=== PATIENT | female | born 1945 | race Caucasian/White ===

== ENCOUNTER 2016-05-28 14:13 | Emergency (ER) | payer OTHER ==
[~2016-05-28] VITALS: Ht 162.6 cm; Wt 113.0 kg
[~2016-05-28 14:13] MED LIST: ALBUAER19 INH; ALLO100T PO; AMLO5TAB4 PO; ASPI81TA21 PO; BENA20TA13 PO; BIOTPOW17; BNC/40 PO; CALCIUM/MAG/ZINC; CINNAMON; CLOP1TAB5 PO; COLC0.6T54 PO; CRANPOW; DOCU1TAB6 PO; EFFSR75 PO; FISHOIL PO; FLAX SEED OIL; GABA-113 PO; GLIM2TAB2 PO; GLUC750C4 PO; LEVO175T PO; LPT/40 PO; LRT5 PO; LSX/40 PO; MECL1TAB42 PO; METF1000 PO; METO-217 PO; MULT-506 PO; MYCO15; NITR0.4D TD; OMEG10002 PO; ROPI1TAB PO; RSTOPS OP; SIMV20TA2 PO; TRAM-10 PO; VENL75TA4 PO
[2016-05-28 14:19] VITALS: TEMP 36.6; Ht 162.6 cm; Wt 113.0 kg
[2016-05-28 15:09] LABS: BASO % 0.3 %; BASO ABS # 0.02 K/uL (0-0.2); COMPLETE YES; EOS % 4.6 %; HEMATOCRIT 39.9 % (37-47); IG% 0.4 %; LYMPH % 30.4 %; LYMPH ABS # 2.16 K/uL (1.2-3.4); MEAN CELL VOLUME 94.5 fL (80-100); MEAN CORPUSCULAR HEMOGLOBIN 30.8 pg (25-34); MEAN CORPUSCULAR HGB CONC 32.6 g/dl (32-36); MEAN PLATELET VOLUME 11.4 fL (7.4-10.4); MONO % 5.9 %; NEUT % 58.4 %; PLATELET COUNT 201 K/uL (130-400); RED BLOOD COUNT 4.22 M/uL (4.2-5.4)
[2016-05-28 15:11] LABS: BLOOD UREA NITROGEN 20 mg/dl (7-18); BUN/CREATININE RATIO 21.6 (10-20); CALCIUM 9.8 mg/dl (8.5-10.1); CARBON DIOXIDE 29 mmol/L (21-32); CHLORIDE 105 mmol/L (98-107); CREATININE 0.91 mg/dl (0.60-1.20); GLUCOSE 197 mg/dl (70-99); POTASSIUM 4.4 mmol/L (3.5-5.1); SODIUM 140 mmol/L (136-145)
--- NOTE | 2016-05-28 15:41 | DIAGNOSTIC IMAGING REPORT ---
CT OF THE HEAD WITHOUT CONTRAST CLINICAL HISTORY: Fall. Dizziness and headache. COMPARISON STUDY: No previous studies for comparison. TECHNIQUE: Helical axial images of the head were obtained without IV contrast. Automated exposure control was utilized for the study. FINDINGS: No acute intracranial hemorrhage, midline shift or mass effect is present. Brain volume is normal for age. Ventricular system is normal. The basilar cisterns are patent. There are no extra-axial collections. Moderate white matter hypodensities likely reflect small vessel disease. There are no findings to suggest acute dural sinus thrombosis or acute territorial infarct. There is no calvarial fracture. Visualized portions of the sinuses and mastoid air cells are clear. IMPRESSION: 1. No acute intracranial findings. 2. No calvarial fracture. Electronically signed by: Tobin Gomez M.D. 05/28/2016 3:39 PM Dictated Date/Time: 05/28/2016 3:36 PM
--- NOTE | 2016-05-28 15:43 | DIAGNOSTIC IMAGING REPORT ---
CT SCAN OF THE CERVICAL SPINE CLINICAL HISTORY: Fall. Dizziness. Headache. COMPARISON STUDY: No priors. TECHNIQUE: CT scan of the cervical spine is performed from the skull base to the upper thoracic spine. Images are reviewed in the axial, sagittal, and coronal planes. IV contrast was not administered for this examination. CT DOSE: 1072.18 mGy.cm FINDINGS: Skeletal structures: The skeletal structures are well mineralized. There is no evidence of fracture or subluxation involving the cervical spine. Vertebral body height is maintained. There is minimal anterolisthesis at C4-C5. Alignment is otherwise preserved. There is straightening of the cervical lordosis with mild reversal centered at C4-C5. The odontoid process and lateral masses are intact. The atlantoaxial articulation is preserved noting productive degenerative change. The spinous processes appear intact. Anterior osteophytes are seen in the lower cervical region. There is near complete bony fusion of the facet joints bilaterally at C2-C3 and C3-C4. There is moderate multilevel cervical spondylosis. Uncovertebral and facet arthropathy contribute to neural foraminal narrowing at several levels. Intervertebral discs: There is moderate degenerative disc space narrowing at C6 -C7. Mild degenerative narrowing is seen at the remaining cervical levels. Central canal: A large posterior disc osteophyte complex at C6-C7 likely contributes to acquired compromise of the central canal. Soft tissues: The prevertebral and paraspinous soft tissues are within normal limits. Atherosclerotic calcification is noted in the carotid bulbs. Calvarium: The visualized calvarium at the skull base appears intact. Brain parenchyma: Partially visualized brain parenchyma the skull base is within normal limits. Sinuses and mastoids: The visualized paranasal sinuses are clear. The mastoid air cells are well pneumatized. Lung apices: Clear as visualized. IMPRESSION: 1. There is no evidence of fracture or subluxation involving the cervical spine. 2. Osteopenia and spondylotic change as above. Electronically signed by: Mil Walker M.D. 05/28/2016 3:41 PM Dictated Date/Time: 05/28/2016 3:38 PM
[2016-05-28 16:27] VITALS: BP 217/97; PULSE 55; O2SAT 97
--- NOTE | 2016-05-28 16:28 | DIAGNOSTIC IMAGING REPORT ---
LEFT KNEE 1 OR 2 VIEWS ROUTINE CLINICAL HISTORY: eval for fx trauma. Pain. COMPARISON: None. DISCUSSION: The bones and joint spaces appear intact. There is no evidence of fracture, dislocation or bony disease. Status post total joint replacement. Good contact between prosthetic and underlying bone. IMPRESSION: No acute process. Electronically signed by: Kendall Rodrigez M.D. 05/28/2016 4:27 PM Dictated Date/Time: 05/28/2016 4:27 PM
--- NOTE | 2016-05-28 16:29 | DIAGNOSTIC IMAGING REPORT ---
SACRUM COCCYX MIN 2 VIEWS CLINICAL HISTORY: Sacral pain status post trauma COMPARISON STUDY: No previous studies for comparison. FINDINGS: There are amorphous calcifications within the left pelvic basin, likely related to the uterus or ovary. Degenerative changes are present within the spine. Minor irregularity of the lower sacrum/coccyx is likely chronic/developmental. No definite acute fractures are visualized on conventional radiographic imaging IMPRESSION: No acute fractures identified. Electronically signed by: Ashok Villeda M.D. 05/28/2016 4:28 PM Dictated Date/Time: 05/28/2016 4:26 PM
[2016-05-28] MEDS ORDERED: OSELTAMIVIR PHOSPHATE SUSP 30 MG/5 ML UDP PO SCH (16:30)
--- NOTE | 2016-05-28 16:30 | DIAGNOSTIC IMAGING REPORT ---
PELVIS 1 OR 2 VIEW ROUTINE CLINICAL HISTORY: Pain status post trauma COMPARISON STUDY: No previous studies for comparison. FINDINGS: No acute fractures are visualized. Degenerative changes are present within the lower lumbar spine. There is no hip dislocation. There are nonspecific left sided pelvic calcifications, possibly related to the uterus or ovary IMPRESSION: No acute fractures identified. Electronically signed by: Ashok Villeda M.D. 05/28/2016 4:29 PM Dictated Date/Time: 05/28/2016 4:28 PM
--- NOTE | 2016-05-28 16:30 | DIAGNOSTIC IMAGING REPORT ---
LUMBAR SPINE 5 VIEWS HISTORY: Trauma. Pain. eval for fx COMPARISON: None. FINDINGS: There is no fracture. Mild levoscoliosis.. Grade 1 anterolisthesis of L4 and L5 secondary to degenerative changes of posterior elements. Moderate degenerative disc change L4-L5 and to lesser extent L5-S1. No evidence for compression deformity IMPRESSION: Degenerative change. No acute process. Electronically signed by: Kendall Rodrigez M.D. 05/28/2016 4:28 PM Dictated Date/Time: 05/28/2016 4:27 PM
--- NOTE | 2016-05-28 20:13 | EMERGENCY ROOM VISIT NOTE ---
History Report prepared by Prudence: Pratibha Tirado Under the Supervision of: Dr. Ivan Thornton M.D. First contact with patient: 14:22 Chief Complaint: OTHER COMPLAINT Stated Complaint: FALL/DIZZY/HEADACHE History of Present Illness The patient is a 70 year old female who presents to the Emergency Room with complaints of a worsening headache that began yesterday status post a fall. The patient notes that she was carrying garbage and misstepped, causing her to fall backwards. Her head initially hit some branches and clover, then hit the grass on the ground. Currently, she complains of lightheadedness, neck pain, back pain , tailbone pain, and right hip pain in addition to the headache. She has been able to walk since the fall. She was having difficulty sleeping due to her discomfort last night. Her current overall pain is an 8/10. She was not dizzy or lightheaded prior to the fall. The patient has a history of chronic neck pain due to spinal stenosis but her current neck pain is worse than usual. The patient notes that she had a fall last week in which she injured her left knee. She notes that she has some pain and swelling to the knee. She has a history of a bilateral knee replacement by Dr. Main. She is on Plavix and 81 mg aspirin. Denies chest pain, shortness of breath, nausea, unilateral numbness or weakness , or other complaints. Source of History: patient Onset: yesterday Position: head Symptom Intensity: 8/10 Timing: worsening Associated Symptoms: + back pain, + neck pain, No SOB, No chest pain, No nausea, No numbness, No weakness Note: Other symptoms: lightheadedness, tailbone pain, right hip pain, left knee pain Review of Systems See HPI for pertinent positives & negatives. A total of 10 systems reviewed and were otherwise negative. Past Medical & Surgical Medical Problems: (1) Spinal stenosis Family History No pertinent family history stated. Social History Smoking Status: Never Smoker Marital Status: Occupation Status: unemployed Current/Historical Medications Scheduled Albuterol Inhaler (Ventolin Inhaler), 2 PUFFS INH QID Allopurinol (Zyloprim), 300 MG PO DAILY Amlodipine Besylate (Norvasc), 5 MG PO DAILY Aspirin Enteric Coated (Ecotrin Or Generic), 81 MG PO DAILY Atorvastatin (Lipitor), 80 MG PO HS Benazepril Hcl (Lotensin), 20 MG PO DAILY Clopidogrel Bisulfate (Plavix), 75 MG PO DAILY Colchicine (Colchicine), 0.6 MG PO PRN Cyclosporine (Restasis Eye Drops), 1 DROP OP BID Docusate Sodium (Docusate Sodium), 100 MG PO BID Fish Oil ([place]-3), 1 CAP PO TID Furosemide (Lasix), 40 MG PO BID Gabapentin (Neurontin), 300 MG PO TID Glimepiride (Glimepiride), 2 MG PO QD@08 Glucosamine Sulfate (Glucosamine), DAILY Hydrocodone/Acetaminophen 5MG/500MG (Vicodin 5MG/500MG), 1 TABLET PO PRN Levothyroxine Sodium (Synthroid), 175 MCG PO DAILY Meclizine Hcl (Meclizine Hcl), 25 MG PO TID Metformin Hcl (Glucophage), 1,000 MG PO BID Metoprolol Succinate (Toprol Xl), 25 MG PO DAILY Multivitamin (Multivitamin), 1 TAB PO DAILY Olmesartan Medoxomil (Benicar), 40 MG PO DAILY [place]-3 Fatty Acids (Fish Oil), DAILY Ropinirole Hydrochloride (Requip), 1 MG PO HS Simvastatin (Zocor), 40 MG PO QPM Venlafaxine Hcl (Effexor), 75 MG PO BID Venlafaxine Hcl (Effexor Extended Rel), 75 MG PO DAILY [Biotin], BID [Calcium/Mag/Zinc], DAILY [Cinnamon], BID [Cranberry], DAILY [Flax Seed Oil], DAILY Scheduled PRN Nitroglycerin (Nitro-Dur 0.4 Mg/Hr), 1 PATCH TD for PRN Tramadol (Ultram), 1 TAB PO DAILY PRN for Pain Miscellaneous Medications Nystatin/Triamcinolone (Nystatin/Triamcinolone 534964-2.1 Unit/gm-%) Allergies Coded Allergies: Penicillins (Verified Allergy, Intermediate, HIVES, 05/28/16) HIVES Tetracyclines (Verified Allergy, Unknown, 05/28/16) Sulfa Drugs (Verified Adverse Reaction, Mild, N&V, 05/28/16) N&V Physical Exam Vital Signs Date Time Temp Pulse Resp B/P Pulse Ox O2 Delivery O2 Flow Rate FiO2 05/28/16 16:27 55 20 217/97 97 Room Air 05/28/16 14:19 36.6 58 18 226/98 98 Room Air Physical Exam Constitutional: Vital signs reviewed. Eyes: Pupils are equal round reactive to light. Conjunctiva are noninjected. ENT: Pharynx is clear without erythema or exudate. Mucous membranes are moist. Neck supple without meningeal signs. No midline tenderness to the C-spine. Respiratory: Clear to auscultation bilaterally. Breath sounds are equal bilaterally. Cardiovascular: Regular rate and rhythm. No rubs or gallops. GI: Soft, nondistended and nontender. Bowel sounds are present. Musculoskeletal: No midline tenderness to the thoracic or lumbosacral spine. No hip tenderness. Diffuse tenderness to the left knee without deformity. There is soft tissue swelling to the left knee. Bilateral edema in the lower extremities. Integumentary: No cyanosis. Neurological: The patient is awake and alert. Cranial nerves II-XII are intact. Motor is 5 out of 5 all extremities. Sensation is intact to light touch all extremities. Normal speech. No pronator drift. Psychiatric: Normal affect. Medical Decision & Procedures ER Provider Diagnostic Interpretation: Radiology results as stated below per my review and the radiologist's interpretation: CT OF THE HEAD WITHOUT CONTRAST CLINICAL HISTORY: Fall. Dizziness and headache. COMPARISON STUDY: No previous studies for comparison. TECHNIQUE: Helical axial images of the head were obtained without IV contrast. Automated exposure control was utilized for the study. FINDINGS: No acute intracranial hemorrhage, midline shift or mass effect is present. Brain volume is normal for age. Ventricular system is normal. The basilar cisterns are patent. There are no extra-axial collections. Moderate white matter hypodensities likely reflect small vessel disease. There are no findings to suggest acute dural sinus thrombosis or acute territorial infarct. There is no calvarial fracture. Visualized portions of the sinuses and mastoid air cells are clear. IMPRESSION: 1. No acute intracranial findings. 2. No calvarial fracture. Electronically signed by: Tobin Gomez M.D. 05/28/2016 3:39 PM Dictated Date/Time: 05/28/2016 3:36 PM ] CT SCAN OF THE CERVICAL SPINE CLINICAL HISTORY: Fall. Dizziness. Headache. COMPARISON STUDY: No priors. TECHNIQUE: CT scan of the cervical spine is performed from the skull base to the upper thoracic spine. Images are reviewed in the axial, sagittal, and coronal planes. IV contrast was not administered for this examination. CT DOSE: 1072.18 mGy.cm FINDINGS: Skeletal structures: The skeletal structures are well mineralized. There is no evidence of fracture or subluxation involving the cervical spine. Vertebral body height is maintained. There is minimal anterolisthesis at C4-C5. Alignment is otherwise preserved. There is straightening of the cervical lordosis with mild reversal centered at C4-C5. The odontoid process and lateral masses are intact. The atlantoaxial articulation is preserved noting productive degenerative change. The spinous processes appear intact. Anterior osteophytes are seen in the lower cervical region. There is near complete bony fusion of the facet joints bilaterally at C2-C3 and C3-C4. There is moderate multilevel cervical spondylosis. Uncovertebral and facet arthropathy contribute to neural foraminal narrowing at several levels. Intervertebral discs: There is moderate degenerative disc space narrowing at C6 -C7. Mild degenerative narrowing is seen at the remaining cervical levels. Central canal: A large posterior disc osteophyte complex at C6-C7 likely contributes to acquired compromise of the central canal. Soft tissues: The prevertebral and paraspinous soft tissues are within normal limits. Atherosclerotic calcification is noted in the carotid bulbs. Calvarium: The visualized calvarium at the skull base appears intact. Brain parenchyma: Partially visualized brain parenchyma the skull base is within normal limits. Sinuses and mastoids: The visualized paranasal sinuses are clear. The mastoid air cells are well pneumatized. Lung apices: Clear as visualized. IMPRESSION: 1. There is no evidence of fracture or subluxation involving the cervical spine. 2. Osteopenia and spondylotic change as above. Electronically signed by: Mil Walker M.D. 05/28/2016 3:41 PM Dictated Date/Time: 05/28/2016 3:38 PM SACRUM COCCYX MIN 2 VIEWS CLINICAL HISTORY: Sacral pain status post trauma COMPARISON STUDY: No previous studies for comparison. FINDINGS: There are amorphous calcifications within the left pelvic basin, likely related to the uterus or ovary. Degenerative changes are present within the spine. Minor irregularity of the lower sacrum/coccyx is likely chronic/developmental. No definite acute fractures are visualized on conventional radiographic imaging IMPRESSION: No acute fractures identified. Electronically signed by: Ashok Villeda M.D. 05/28/2016 4:28 PM Dictated Date/Time: 05/28/2016 4:26 PM LEFT KNEE 1 OR 2 VIEWS ROUTINE CLINICAL HISTORY: eval for fx trauma. Pain. COMPARISON: None. DISCUSSION: The bones and joint spaces appear intact. There is no evidence of fracture, dislocation or bony disease. Status post total joint replacement. Good contact between prosthetic and underlying bone. IMPRESSION: No acute process. Electronically signed by: Kendall Rodrigez M.D. 05/28/2016 4:27 PM Dictated Date/Time: 05/28/2016 4:27 PM LUMBAR SPINE 5 VIEWS HISTORY: Trauma. Pain. eval for fx COMPARISON: None. FINDINGS: There is no fracture. Mild levoscoliosis.. Grade 1 anterolisthesis of L4 and L5 secondary to degenerative changes of posterior elements. Moderate degenerative disc change L4-L5 and to lesser extent L5-S1. No evidence for compression deformity IMPRESSION: Degenerative change. No acute process. Electronically signed by: Kendall Rodrigez M.D. 05/28/2016 4:28 PM Dictated Date/Time: 05/28/2016 4:27 PM PELVIS 1 OR 2 VIEW ROUTINE CLINICAL HISTORY: Pain status post trauma COMPARISON STUDY: No previous studies for comparison. FINDINGS: No acute fractures are visualized. Degenerative changes are present within the lower lumbar spine. There is no hip dislocation. There are nonspecific left sided pelvic calcifications, possibly related to the uterus or ovary IMPRESSION: No acute fractures identified. Electronically signed by: Ashok Villeda M.D. 05/28/2016 4:29 PM Dictated Date/Time: 05/28/2016 4:28 PM Laboratory Results 05/28/16 14:35 Red Blood Count 4.22, Mean Corpuscular Volume 94.5, Mean Corpuscular Hemoglobin 30.8, Mean Corpuscular Hemoglobin Concent 32.6, Mean Platelet Volume 11.4, Neutrophils (%) (Auto) 58.4, Lymphocytes (%) (Auto) 30.4, Monocytes (%) (Auto) 5.9, Eosinophils (%) (Auto) 4.6, Basophils (%) (Auto) 0.3, Neutrophils # (Auto) 4.14, Lymphocytes # (Auto) 2.16, Monocytes # (Auto) 0.42, Eosinophils # (Auto) 0.33, Basophils # (Auto) 0.02 05/28/16 14:35 Test 05/28/16 14:35 White Blood Count 7.10 K/uL (4.8-10.8) Red Blood Count 4.22 M/uL (4.2-5.4) Hemoglobin 13.0 g/dL (12.0-16.0) Hematocrit 39.9 % (37-47) Mean Corpuscular Volume 94.5 fL (80-100) Mean Corpuscular Hemoglobin 30.8 pg (25-34) Mean Corpuscular Hemoglobin Concent 32.6 g/dl (32-36) Platelet Count 201 K/uL (130-400) Mean Platelet Volume 11.4 fL (7.4-10.4) Neutrophils (%) (Auto) 58.4 % Lymphocytes (%) (Auto) 30.4 % Monocytes (%) (Auto) 5.9 % Eosinophils (%) (Auto) 4.6 % Basophils (%) (Auto) 0.3 % Neutrophils # (Auto) 4.14 K/uL (1.4-6.5) Lymphocytes # (Auto) 2.16 K/uL (1.2-3.4) Monocytes # (Auto) 0.42 K/uL (0.11-0.59) Eosinophils # (Auto) 0.33 K/uL (0-0.5) Basophils # (Auto) 0.02 K/uL (0-0.2) RDW Standard Deviation 44.1 fL (36.4-46.3) RDW Coefficient of Variation 12.9 % (11.5-14.5) Immature Granulocyte % (Auto) 0.4 % Immature Granulocyte # (Auto) 0.03 K/uL (0.00-0.02) Prothrombin Time 11.0 SECONDS (9.0-12.0) Prothromb Time International Ratio 1.0 (0.9-1.1) Activated Partial Thromboplast Time 25.4 SECONDS (21.0-31.0) Partial Thromboplastin Ratio 1.0 Anion Gap 6.0 mmol/L (3-11) Est Creatinine Clear Calc Drug Dose 69.9 ml/min Estimated GFR () 73.6 Estimated GFR (Non- 63.5 BUN/Creatinine Ratio 21.6 (10-20) Calcium Level 9.8 mg/dl (8.5-10.1) Troponin I < 0.015 ng/ml (0-0.045) Laboratory results as reviewed by me. ECG Indication: other (lightheadedness) Rate (beats per minute): 55 Rhythm: sinus bradycardia Findings: no acute ischemic change, no ectopy ED Course 1439: The patient was evaluated in room A2. A complete history and physical exam was performed. 155: I reassessed the patient and updated her on test results. 1634: I reassessed the patient. I talked to her about results. She agreed with the plan and will be discharged home. Medical Decision This is a 70-year-old female presents with injuries after a mechanical fall yesterday. Differential diagnosis includes contusion, concussion, intracranial hemorrhage, skull fracture, tailbone fracture, strain. I did perform a limited focused review of portions of the patient's old chart on the electronic medical record. The patient has had no recent pertinent visits to this hospital. I did evaluate the patient as noted above. The patient misstepped and fell yesterday while holding garbage. She fell backwards onto her buttocks and then hit her head on the grass. She has since developed headache and dizziness as well as pain to her buttocks and tailbone. She is neurologically intact at this time. She states that she did not really want to be evaluated but she was with her and the nurses at the facility felt that she should be seen and sent her here. IV access was established. The patient was placed on a continuous diagnostic cardiac sonographer. I did order and personally review the patient's 12- lead EKG and x-rays as described above. I did order and review the patient's blood work as noted in the electronic medical record. I did order a CT of the head and cervical spine. I did review the images myself as well as the radiology report as described above. I did discuss the test results with the patient and her . I did recommend she follow up with her doctor and orthopedic physician. She was given head injury precautions and discharged in good condition. Impression Primary Impression: Acute head injury Additional Impressions: Fall Low back pain Chronic neck pain Left knee injury Scribe Attestation The scribe's documentation has been prepared under my direct and personally reviewed by me in its entirety. I confirm that the note above accurately reflects all work, treatment, procedures, and medical decision making performed by me. Departure Information Dispostion Home / Self-Care Referrals Mable Hylton (PCP) Patient Instructions ED Head Injury Closed, My [facility] Additional Instructions You have been examined and treated today on an emergency basis only. This is not a substitute for, or an effort to provide, complete comprehensive medical care. It is impossible to recognize and treat all injuries or illnesses in a single emergency department visit. It is therefore important that you follow up closely with your physician and orthopedic surgeon regarding your knee. Call as soon as possible for an appointment. Return for worsening symptoms or if you develop fever, vomiting, abdominal pain, loss of control of your bowel or bladder, numbness or weakness to your legs, numbness to your private area, difficulty urinating, or any other concerning symptoms. Problem Qualifiers
[2016-06-15] MEDS ORDERED: BENA1TAB19 PO (10:05)
[2016-06-15] MEDS ORDERED: ALBUAER INH (10:05)
[2016-08-28] MEDS ORDERED: novolog SQ (14:07)
[2016-08-28] MEDS ORDERED: Lantus SQ (14:07)
[2016-08-28] MEDS ORDERED: ASCA500 PO (14:15)
[2016-08-28] MEDS ORDERED: vitamin e PO (14:15)
[2016-08-28] MEDS ORDERED: MAGN400T6 PO (14:15)
[2016-08-28] MEDS ORDERED: ZINC1CAP PO (14:15)
[2016-10-09] MEDS ORDERED: ALLO300T2 PO (15:28)
[2016-10-09] MEDS ORDERED: INSDGI SC (15:28)
[2016-10-09] MEDS ORDERED: ATOR-26 PO (15:28)
[2016-10-09] MEDS ORDERED: NVLGI/PEN SQ (15:28)
[2016-10-09] MEDS ORDERED: CARV25TA2 PO (15:54)
== END 2016-05-28 16:52 | disposition home or self-care (01) ==
LOC: EDBD 14:13 → C.EDA 14:14
DX: S09.90XA Unspecified injury of head, initial encounter (principal); M54.5 Low back pain; M54.2 Cervicalgia; S89.92XA Unspecified injury of left lower leg, initial encounter; W18.30XA Fall on same level, unspecified, initial encounter; Y93.E9 Activity, other interior property and clothing maintenance; M25.551 Pain in right hip; M53.3 Sacrococcygeal disorders, not elsewhere classified; M48.02 Spinal stenosis, cervical region; M47.812 Spondylosis without myelopathy or radiculopathy, cervical region; M85.88 Other specified disorders of bone density and structure, other site; Z96.653 Presence of artificial knee joint, bilateral; Z79.01 Long term (current) use of anticoagulants; Z79.82 Long term (current) use of aspirin

== ENCOUNTER 2016-06-13 09:22 | Observation (INO) | payer OTHER ==
[~2016-06-13] VITALS: Ht 162.6 cm; Wt 105.5 kg
[2016-06-13] MEDS ORDERED: ONDANSETRON INJ 2 MG/ML 2 ML VIAL IV STA (09:35)
[2016-06-13 09:48] LABS: BASO % 0.3 %; BASO ABS # 0.02 K/uL (0-0.2); COMPLETE YES; EOS % 6.8 %; HEMATOCRIT 41.5 % (37-47); IG% 0.5 %; LYMPH % 26.1 %; LYMPH ABS # 1.92 K/uL (1.2-3.4); MEAN CELL VOLUME 91.8 fL (80-100); MEAN CORPUSCULAR HEMOGLOBIN 30.8 pg (25-34); MEAN CORPUSCULAR HGB CONC 33.5 g/dl (32-36); MONO % 6.8 %; NEUT % 59.5 %; PLATELET COUNT 207 K/uL (130-400); RED BLOOD COUNT 4.52 M/uL (4.2-5.4); WHITE BLOOD COUNT 7.36 K/uL (4.8-10.8)
[2016-06-13 10:00] LABS: INR 1.1 (0.9-1.1); PROTHROMBIN TIME (PATIENT) 11.3 SECONDS (9.0-12.0)
--- NOTE | 2016-06-13 10:03 | EMERGENCY ROOM VISIT NOTE ---
History Report prepared by Prudence: Kapil Weber Under the Supervision of: Dr. Derek Arguello D.O. First contact with patient: 09:28 Stated Complaint: HEADACHE, HYPERTENSION History of Present Illness The patient is a 70 year old female who presents to the Emergency Room with complaints of a constant headache for the past couple of weeks. The patient states that she came into the hospital for her , and someone told her that she did not look well and should come to the ED. The patient states that the headache is located at the front of her head. The patient denies any nausea , vomiting, chest pain, shortness of breath, and abdominal pain. She is complaining of some neck stiffness and neck pain. The patient additionally states that she has been a little confused recently. She states that she has not gone to her doctor about this recently. She states that she has a medical history of hypertension, diabetes, lymphedema, and salivary gland cancer in 1974 , and she states that she has a surgical history of knee surgery, exploratory surgery, carpal tunnel surgery, and an appendectomy. She additionally states that she falls a lot. The patient states that she did not take her medications this morning. She denies any alcohol or tobacco usage. Source of History: patient Onset: a couple weeks ago Position: head Quality: ache Timing: constant Associated Symptoms: + neck pain, No SOB, No abdominal pain, No nausea, No vomiting Review of Systems See HPI for pertinent positives & negatives. A total of 10 systems reviewed and were otherwise negative. Past Medical & Surgical Medical Problems: (1) Hypertensive urgency (2) Spinal stenosis Family History Heart disease Hypertension Social History Smoking Status: Never Smoker Marital Status: Occupation Status: unemployed Current/Historical Medications Scheduled Albuterol Sulfate (Proventil Hfa), Unknown Dose INH DIRECTED Allopurinol (Zyloprim), 300 MG PO DAILY Aspirin Enteric Coated (Ecotrin Or Generic), 81 MG PO DAILY Atorvastatin (Lipitor), 80 MG PO HS Benazepril Hcl (Lotensin), 20 MG PO DAILY Biotin (Biotin), Unknown Dose PO BID Colchicine (Colchicine), 0.6 MG PO PRN Cyclosporine (Ophth) (Restasis), 1 DROPS OP BID Docusate Sodium (Docusate Sodium), 100 MG PO BID Fluticasone Propionate (Nasal) (Flonase Allergy Relief), 50 MCG JOHN BID Furosemide (Lasix), 80 MG PO DAILY Gabapentin (Neurontin), 300 MG PO BID Glimepiride (Amaryl), 1 TAB PO BID Glucosamine Sulfate (Glucosamine), DAILY Hydrocortisone Acetate (Rectal (Anusol-Hc), 1 SUPP AL BID Levothyroxine Sodium (Synthroid), 175 MCG PO DAILY Meloxicam (Mobic), 15 MG PO DAILY Metformin Hcl (Glucophage), 1,000 MG PO BID Metoprolol Tartrate (Lopressor) (Lopressor), 1 TAB PO BID Multivitamin (Multivitamin), 1 TAB PO DAILY [place]-3 Fatty Acids (Fish Oil), DAILY Pantoprazole (Protonix), 40 MG PO DAILY Ropinirole Hydrochloride (Requip), 1 MG PO HS Senna (Senokot), 1 TAB PO DIRECTED Venlafaxine Hcl (Effexor Extended Rel), 75 MG PO DAILY [Calcium/Mag/Zinc], DAILY [Cinnamon], BID [Flax Seed Oil], DAILY Scheduled PRN Diphenhydramine Hcl (Benadryl Allergy), 1 CAP PO Q4H PRN for Itching Miscellaneous Medications Nystatin/Triamcinolone (Nystatin/Triamcinolone 763207-2.1 Unit/gm-%) Allergies Coded Allergies: Penicillins (Verified Allergy, Intermediate, HIVES, 06/13/16) HIVES Tetracyclines (Verified Allergy, Unknown, 06/13/16) Sulfa Drugs (Verified Adverse Reaction, Mild, N&V, 06/13/16) N&V Physical Exam Vital Signs Date Time Temp Pulse Resp B/P Pulse Ox O2 Delivery O2 Flow Rate FiO2 06/13/16 16:41 61 18 210/114 96 Room Air 06/13/16 14:45 58 16 227/89 06/13/16 14:02 57 16 230/85 06/13/16 13:40 52 16 198/88 93 Room Air 06/13/16 13:33 54 06/13/16 12:02 55 18 252/117 97 Room Air 06/13/16 11:04 61 16 245/128 96 Nasal Cannula 2.0 06/13/16 09:48 64 06/13/16 09:32 36.4 67 16 252/101 94 Room Air Physical Exam GENERAL: Patient is awake, alert, and slow to answer questions but does not appear to be in pain. EYES: The conjunctivae are clear. The pupils are round and reactive. EARS, NOSE, MOUTH AND THROAT: The nose is without any evidence of any deformity. Mucous membranes are moist tongue is midline NECK: The neck is nontender and supple. RESPIRATORY: Normal respiratory effort is noted there is no evidence of wheezing rhonchi or rales CARDIOVASCULAR: Regular rate and rhythm noted there no murmurs rubs or gallops normal S1 normal S2 GASTROINTESTINAL: The abdomen is soft. Bowel sounds are present in all quadrants. Abdomen is nontender MUSCULOSKELETAL/EXTREMITIES: There is no evidence of gross deformity full range of motion is noted in the hips and shoulders SKIN: Pedal edema noted bilaterally. No erythema or signs of cellulitis noted. NEUROLOGIC: Slow to answer questions. Follows commands appropriately. No drift in either lower extremity. Speech was normal. Holds legs off of the bed for greater than 5 seconds. Medical Decision & Procedures ER Provider Diagnostic Interpretation: Radiology results as stated below per my review and radiologist interpretation: CT HEAD WITHOUT CONTRAST (CT) CLINICAL HISTORY: Severe headache COMPARISON STUDY: 05/28/2016 TECHNIQUE: Axial CT of the brain is performed from the vertex to the skull base. IV contrast was not administered for this examination. CT DOSE: 614.27 mGy.cm FINDINGS: No intra or extra-axial mass lesions are visualized. There is no CT evidence of acute cortical infarction. There is no evidence of midline shift. There is no acute hemorrhage. No calvarial fractures are visualized. There are moderate white matter hypodensities likely on a small vessel basis. There is no evidence of pathologic ventricular dilatation. There is no evidence of acute sinusitis. There is a stable 7 mm dural based calcification within the right anterior middle cranial fossa IMPRESSION: No acute intracranial findings Electronically signed by: Ashok Villeda M.D. 06/13/2016 10:55 AM Dictated Date/Time: 06/13/2016 10:53 AM CHEST ONE VIEW PORTABLE CLINICAL HISTORY: Headache. Confusion. COMPARISON STUDY: No previous studies for comparison. FINDINGS: There is no pneumothorax or pleural effusion. Moderate enlargement of the cardiac silhouette is noted. There is pulmonary vascular congestion without overt pulmonary edema. No consolidation is identified. IMPRESSION: Moderate enlargement of the cardiac silhouette. Pulmonary vascular congestion without overt pulmonary edema. Electronically signed by: Tobin Gomez M.D. 06/13/2016 10:42 AM Dictated Date/Time: 06/13/2016 10:38 AM Laboratory Results 06/13/16 09:30 Red Blood Count 4.52, Mean Corpuscular Volume 91.8, Mean Corpuscular Hemoglobin 30.8, Mean Corpuscular Hemoglobin Concent 33.5, Mean Platelet Volume 11.0, Neutrophils (%) (Auto) 59.5, Lymphocytes (%) (Auto) 26.1, Monocytes (%) (Auto) 6.8, Eosinophils (%) (Auto) 6.8, Basophils (%) (Auto) 0.3, Neutrophils # (Auto) 4.38, Lymphocytes # (Auto) 1.92, Monocytes # (Auto) 0.50, Eosinophils # (Auto) 0.50, Basophils # (Auto) 0.02 06/13/16 09:30 Test 06/13/16 09:30 06/13/16 09:50 White Blood Count 7.36 K/uL (4.8-10.8) Red Blood Count 4.52 M/uL (4.2-5.4) Hemoglobin 13.9 g/dL (12.0-16.0) Hematocrit 41.5 % (37-47) Mean Corpuscular Volume 91.8 fL (80-100) Mean Corpuscular Hemoglobin 30.8 pg (25-34) Mean Corpuscular Hemoglobin Concent 33.5 g/dl (32-36) Platelet Count 207 K/uL (130-400) Mean Platelet Volume 11.0 fL (7.4-10.4) Neutrophils (%) (Auto) 59.5 % Lymphocytes (%) (Auto) 26.1 % Monocytes (%) (Auto) 6.8 % Eosinophils (%) (Auto) 6.8 % Basophils (%) (Auto) 0.3 % Neutrophils # (Auto) 4.38 K/uL (1.4-6.5) Lymphocytes # (Auto) 1.92 K/uL (1.2-3.4) Monocytes # (Auto) 0.50 K/uL (0.11-0.59) Eosinophils # (Auto) 0.50 K/uL (0-0.5) Basophils # (Auto) 0.02 K/uL (0-0.2) RDW Standard Deviation 42.6 fL (36.4-46.3) RDW Coefficient of Variation 12.8 % (11.5-14.5) Immature Granulocyte % (Auto) 0.5 % Immature Granulocyte # (Auto) 0.04 K/uL (0.00-0.02) Prothrombin Time 11.3 SECONDS (9.0-12.0) Prothromb Time International Ratio 1.1 (0.9-1.1) Activated Partial Thromboplast Time 26.5 SECONDS (21.0-31.0) Partial Thromboplastin Ratio 1.0 Anion Gap 8.0 mmol/L (3-11) Est Creatinine Clear Calc Drug Dose 63.9 ml/min Estimated GFR () 67.3 Estimated GFR (Non- 58.0 BUN/Creatinine Ratio 17.0 (10-20) Calcium Level 10.6 mg/dl (8.5-10.1) Total Bilirubin 0.4 mg/dl (0.2-1) Direct Bilirubin 0.1 mg/dl (0-0.2) Aspartate Amino Transf (AST/SGOT) 16 U/L (15-37) Alanine Aminotransferase (ALT/SGPT) 27 U/L (12-78) Alkaline Phosphatase 97 U/L (45-117) Total Creatine Kinase 33 U/L (26-192) Creatine Kinase MB 0.5 ng/ml (0.5-3.6) Creatine Kinase MB Ratio 1.5 (0-3.0) Troponin I < 0.015 ng/ml (0-0.045) Total Protein 7.1 gm/dl (6.4-8.2) Albumin 3.6 gm/dl (3.4-5.0) Lipase 156 U/L (73-393) Urine Color YELLOW Urine Appearance CLEAR (CLEAR) Urine pH 7.0 (4.5-7.5) Urine Specific [place] 1.014 (1.000-1.030) Urine Protein 1+ (NEG) Urine Glucose (UA) 2+ (NEG) Urine Ketones NEG (NEG) Urine Occult Blood NEG (NEG) Urine Nitrite NEG (NEG) Urine Bilirubin NEG (NEG) Urine Urobilinogen NEG (NEG) Urine Leukocyte Esterase NEG (NEG) Urine WBC (Auto) 1-5 /hpf (0-5) Urine RBC (Auto) 0-4 /hpf (0-4) Urine Hyaline Casts (Auto) 1-5 /lpf (0-5) Urine Epithelial Cells (Auto) 10-20 /lpf (0-5) Urine Bacteria (Auto) NEG (NEG) Laboratory results per my review. Medications Administered Medications (Trade) Dose Ordered Sig/Di Route Start Time Stop Time Status Last Admin Dose Admin Clonidine HCl (Catapres Tab) 0.2 mg NOW ONCE PO 06/13/16 12:15 06/13/16 12:16 DC 06/13/16 12:17 0.2 MG Amlodipine Besylate (Norvasc Tab) 5 mg NOW STAT PO 06/13/16 16:29 06/13/16 16:30 DC 06/13/16 16:40 5 MG Furosemide (Lasix Tab) 80 mg NOW STAT PO 06/13/16 16:30 06/13/16 16:31 DC 06/13/16 16:40 80 MG ECG Indication: other (Headache) Rate (beats per minute): 59 Rhythm: sinus bradycardia Findings: no ectopy, other (No acute ST abnormality. LVH noted by voltage criteria) Comparison ECG Date: 05/28/16 Change: LVH is new ED Course 0928: The patient was evaluated in room B10. A complete history and physical examination were performed. 1207: I reevaluated the patient, and she was resting 1215: Catapres Tab 0.2mg PO 1300: I reevaluated the patient, and she was resting. 1403: I discussed the patient's case with Dr. Ridley. He is going to evaluate the patient for further treatment Medical Decision Differential diagnosis: Etiologies such as migraine headache, meningitis, sinusitis, CO exposure, ICH, SAH, infection, tumor, headache, sinus thrombosis, arterial dissection, as well as others were entertained. Nursing notes reviewed. The patient is a 70-year-old female who presented to the emergency department with multiple complains. She was found have a very elevated blood pressure and her thought processes seemed to be quite slow. She appears to be noncompliant with her blood pressure medication. She was treated with her usual outpatient blood pressure medication as well as clonidine in the emergency department. The patient was evaluated multiple times in the emergency department. Her symptoms started to slowly improve as well as her blood pressure improved. I was very concerned with her overall condition. It sounds though she needs some help at home and I'm not sure if she is completely compliant with medications at baseline. This reason I discussed her case with the on-call [facility] hospitalist. I do feel she may have some degree of hypertensive encephalopathy and may require more intensive and slow her blood control at this time. I discussed the patient's laboratory and radiographic studies with her. Consults Time Called: 1400 Consulting Physician: Dr. Ridley Returned Call: 1403 I discussed the patient's case with Dr. Ridley. He is going to evaluate the patient for further treatment Impression Primary Impression: Hypertensive encephalopathy Additional Impression: Noncompliance with medication regimen Scribe Attestation The scribe's documentation has been prepared under my direction and personally reviewed by me in its entirety. I confirm that the note above accurately reflects all work, treatment, procedures, and medical decision making performed by me. Departure Information Referrals Mable Hylton (PCP) Problem Qualifiers
[2016-06-13 10:08] LABS: ALT/SGPT 27 U/L (12-78); BLOOD UREA NITROGEN 17 mg/dl (7-18); CALCIUM 10.6 mg/dl (8.5-10.1); CARBON DIOXIDE 29 mmol/L (21-32); CHLORIDE 104 mmol/L (98-107); CREATININE 0.98 mg/dl (0.60-1.20); GLUCOSE 221 mg/dl (70-99); POTASSIUM 3.9 mmol/L (3.5-5.1); SODIUM 141 mmol/L (136-145)
[2016-06-13] MEDS ORDERED: METO25TA56 PO (10:08)
[2016-06-13 10:13] LABS: ALKALINE PHOSPHATASE 97 U/L (45-117); AST/SGOT 16 U/L (15-37); CKMB/CK RATIO 1.5 (0-3.0)
[2016-06-13] MEDS ORDERED: HYDR25SU20 PR (10:18)
[2016-06-13] MEDS ORDERED: PANT40TA PO (10:18)
[2016-06-13] MEDS ORDERED: SENN-61 PO (10:18)
[2016-06-13] MEDS ORDERED: MELO7.5T5 PO (10:18)
[2016-06-13] MEDS ORDERED: DIPH25CA65 PO (10:18)
[2016-06-13] MEDS ORDERED: GLIM4TAB PO (10:18)
[2016-06-13] MEDS ORDERED: ALBUAER INH (10:21)
[2016-06-13] MEDS ORDERED: CYCL0.052 OP (10:21)
[2016-06-13] MEDS ORDERED: FLUT0.15 NAE (10:24)
[2016-06-13] MEDS ORDERED: BIOT1CAP8 PO (10:24)
[2016-06-13 10:38] LABS: URINE APPEARANCE CLEAR (CLEAR); URINE BILIRUBIN NEG (NEG); URINE COLOR YELLOW; URINE NITRITE NEG (NEG); URINE SPECIFIC GRAVITY 1.014 (1.000-1.030); UROBILINOGEN NEG (NEG)
--- NOTE | 2016-06-13 10:44 | DIAGNOSTIC IMAGING REPORT ---
CHEST ONE VIEW PORTABLE CLINICAL HISTORY: Headache. Confusion. COMPARISON STUDY: No previous studies for comparison. FINDINGS: There is no pneumothorax or pleural effusion. Moderate enlargement of the cardiac silhouette is noted. There is pulmonary vascular congestion without overt pulmonary edema. No consolidation is identified. IMPRESSION: Moderate enlargement of the cardiac silhouette. Pulmonary vascular congestion without overt pulmonary edema. Electronically signed by: Tobin Gomez M.D. 06/13/2016 10:42 AM Dictated Date/Time: 06/13/2016 10:38 AM
[2016-06-13 10:46] LABS: MANUAL MICROSCOPIC REQUIRED? NO; REVIEW REQ? NO
--- NOTE | 2016-06-13 10:56 | DIAGNOSTIC IMAGING REPORT ---
CT HEAD WITHOUT CONTRAST (CT) CLINICAL HISTORY: Severe headache COMPARISON STUDY: 05/28/2016 TECHNIQUE: Axial CT of the brain is performed from the vertex to the skull base. IV contrast was not administered for this examination. CT DOSE: 614.27 mGy.cm FINDINGS: No intra or extra-axial mass lesions are visualized. There is no CT evidence of acute cortical infarction. There is no evidence of midline shift. There is no acute hemorrhage. No calvarial fractures are visualized. There are moderate white matter hypodensities likely on a small vessel basis. There is no evidence of pathologic ventricular dilatation. There is no evidence of acute sinusitis. There is a stable 7 mm dural based calcification within the right anterior middle cranial fossa IMPRESSION: No acute intracranial findings Electronically signed by: Ashok Villeda M.D. 06/13/2016 10:55 AM Dictated Date/Time: 06/13/2016 10:53 AM
[2016-06-13] MEDS ORDERED: METOPROLOL TARTRATE 50 MG TAB PO STA (11:09)
[2016-06-13] MEDS ORDERED: CLONIDINE HCL 0.1 MG TAB PO ONE (12:15)
[2016-06-13] MEDS ORDERED: ACETAMINOPHEN 325 MG TAB PO PRN (15:15)
--- NOTE | 2016-06-13 15:44 | History and Physical ---
History & Physical Date & Time of Service: Jun 13, 2016 at 15:45 . Chief Complaint: weakness, falls, headache . Primary Care Physician: Mable Hylton . History of Present Illness Source: patient, clinic records, hospital records 70 YO female followed by KASANDRA Grady in the [facility]. History of ischemic heart disease, hypertension, DM type 2, and other problems noted below. She was accompanying her today for his physical therapy sessions here. Noted to appear ill; possibly confused. Referred to ED for evaluation. BP in ED was 252/101. Patient apparently did not take her morning antihypertensive meds today. She has been experiencing generalized weakness, intermittent vertigo, frequent falls. Seen in ED on 05/28/16. BP at that time was 226/98. Last fall was about a week ago; she struck her head and neck. No associated LOC. No associated palpitations. She has had a headache which she attributes to chronic neck pain. Chronic chest pressure with exertion, relieved by rest, unchanged. Chronic dyspnea on exertion, unchanged. Chronic edema, somewhat worse. Has not been taking her furosemide due to urinary incontinence. . Past Medical/Surgical History Chronic and Resolved Medical Problems: (1) Aortic stenosis Status: Chronic (2) Cerebrovascular disease Permanent Comment: history TIA Status: Chronic (3) Chronic neck pain Status: Chronic (4) Coronary artery disease Status: Chronic (5) Diabetes mellitus, type 2 Status: Chronic (6) Diabetic neuropathy Status: Chronic (7) Dyslipidemia Status: Chronic (8) Gout Status: Chronic (9) History of urinary calculi Status: Chronic (10) Hypertension Status: Chronic (11) Hypothyroidism Status: Chronic (12) Osteoarthritis Status: Chronic (13) Restless leg syndrome Status: Chronic (14) Spinal stenosis Status: Chronic (15) Urinary incontinence Status: Chronic Surgical Problems: (1) Status post appendectomy Status: Chronic (2) Status post hernia repair Status: Chronic (3) Status post total knee replacement, bilateral Status: Chronic . Family History Mother- [place], CHF, stroke Father- CAD, stroke, Alzheimer's Daughter- RA . Social History Smoking Status: Never Smoker Alcohol Use: none Marital Status: Occupational Status: unemployed Immunizations History of Influenza Vaccine: Yes History of Tetanus Vaccine?: Unknown History of Pneumococcal: Yes History of Hepatitis B Vaccine: Yes Multi-Drug Resistant Organisms History of MDRO: No Allergies Coded Allergies: Penicillins (Verified Allergy, Intermediate, HIVES, 06/13/16) HIVES Tetracyclines (Verified Allergy, Unknown, 06/13/16) Sulfa Drugs (Verified Adverse Reaction, Mild, N&V, 06/13/16) N&V Home Medications Scheduled Albuterol Sulfate (Proventil Hfa), Unknown Dose INH DIRECTED Allopurinol (Zyloprim), 300 MG PO DAILY Aspirin Enteric Coated (Ecotrin Or Generic), 81 MG PO DAILY Atorvastatin (Lipitor), 80 MG PO HS Benazepril Hcl (Lotensin), 20 MG PO DAILY Biotin (Biotin), Unknown Dose PO BID Colchicine (Colchicine), 0.6 MG PO PRN Cyclosporine (Ophth) (Restasis), 1 DROPS OP BID Docusate Sodium (Docusate Sodium), 100 MG PO BID Fluticasone Propionate (Nasal) (Flonase Allergy Relief), 50 MCG JOHN BID Furosemide (Lasix), 80 MG PO DAILY Gabapentin (Neurontin), 300 MG PO BID Glimepiride (Amaryl), 1 TAB PO BID Glucosamine Sulfate (Glucosamine), DAILY Hydrocortisone Acetate (Rectal (Anusol-Hc), 1 SUPP DE BID Levothyroxine Sodium (Synthroid), 175 MCG PO DAILY Meloxicam (Mobic), 15 MG PO DAILY Metformin Hcl (Glucophage), 1,000 MG PO BID Metoprolol Tartrate (Lopressor) (Lopressor), 1 TAB PO BID Multivitamin (Multivitamin), 1 TAB PO DAILY [place]-3 Fatty Acids (Fish Oil), DAILY Pantoprazole (Protonix), 40 MG PO DAILY Ropinirole Hydrochloride (Requip), 1 MG PO HS Senna (Senokot), 1 TAB PO DIRECTED Venlafaxine Hcl (Effexor Extended Rel), 75 MG PO DAILY [Calcium/Mag/Zinc], DAILY [Cinnamon], BID [Flax Seed Oil], DAILY Scheduled PRN Diphenhydramine Hcl (Benadryl Allergy), 1 CAP PO Q4H PRN for Itching Miscellaneous Medications Nystatin/Triamcinolone (Nystatin/Triamcinolone 415320-6.1 Unit/gm-%) Review of Systems Constitutional: + weight loss (intentional), No chills, No fever Eyes: + problem reported (occasional blurred vision), No diplopia ENT: No hearing loss, No sore throat Respiratory: + dyspnea on exertion (chronic), No cough Cardiovascular: + chest pain (chronic exertional chest pressure), + edema ( chronic), No palpitations Abdomen: + constipation, No GI bleeding, No nausea, No pain, No vomiting Musculoskeletal: + joint pain, + problem reported (chronic neck, back, knee pain) Genitourinary - Female: + urinary incontinence, No dysuria, No hematuria Neurologic: + problem reported (diabetic neuropathy), + weakness (generalized) Psychiatric: + anxiety, + depression symptoms Endocrine: + excessive thirst, + excessive urination (intermittent), + fatigue , + problem reported (doesn't check blood sugars regularly; typically in 200's) Hematologic / Lymphatic: + abnormal bleeding/bruising, No swollen lymph nodes Integumentary: No new/changing skin lesions, No rash Physical Exam Vital Signs Date Time Temp Pulse Resp B/P Pulse Ox O2 Delivery O2 Flow Rate FiO2 06/13/16 14:45 58 16 227/89 06/13/16 14:02 57 16 230/85 06/13/16 13:40 52 16 198/88 93 Room Air 06/13/16 13:33 54 06/13/16 12:02 55 18 252/117 97 Room Air 06/13/16 11:04 61 16 245/128 96 Nasal Cannula 2.0 06/13/16 09:48 64 06/13/16 09:32 36.4 67 16 252/101 94 Room Air General Appearance: WD/WN, no apparent distress Head: normocephalic, atraumatic Eyes: normal inspection, PERRL, EOMI, sclerae normal ENT: normal ENT inspection, hearing grossly normal, pharynx normal, + pertinent finding (edentulous wearing upper dentures) Neck: supple, no adenopathy, thyroid normal, no JVD, trachea midline Respiratory/Chest: lungs clear, no respiratory distress, no accessory muscle use Cardiovascular: regular rate, rhythm, no JVD, + systolic murmur (II/ systolic murmur at base), + gallop/S4, + pertinent finding (3+ lymphedema lower extremities) Abdomen/GI: normal bowel sounds, non tender, soft, no organomegaly, + pertinent finding (obese) Extremities/Musculoskelatal: no calf tenderness, normal capillary refill, + pedal edema, + pertinent finding (pedal pulses diminished) 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 (PERRL, EOMI), no motor/sensory deficits (strength upper and lower extremities essentially 5/5), alert, oriented x 3, + disoriented (mild confusion) Skin: normal color, warm/dry, no rash Lymphatic: no adenopathy Diagnostics Laboratory Results Results Past 24 Hours Test 06/13/16 09:30 06/13/16 09:50 Range/Units White Blood Count 7.36 4.8-10.8 K/uL Red Blood Count 4.52 4.2-5.4 M/uL Hemoglobin 13.9 12.0-16.0 g/dL Hematocrit 41.5 37-47 % Mean Corpuscular Volume 91.8 80-100 fL Mean Corpuscular Hemoglobin 30.8 25-34 pg Mean Corpuscular Hemoglobin Concent 33.5 32-36 g/dl Platelet Count 207 130-400 K/uL Mean Platelet Volume 11.0 7.4-10.4 fL Neutrophils (%) (Auto) 59.5 % Lymphocytes (%) (Auto) 26.1 % Monocytes (%) (Auto) 6.8 % Eosinophils (%) (Auto) 6.8 % Basophils (%) (Auto) 0.3 % Neutrophils # (Auto) 4.38 1.4-6.5 K/uL Lymphocytes # (Auto) 1.92 1.2-3.4 K/uL Monocytes # (Auto) 0.50 0.11-0.59 K/uL Eosinophils # (Auto) 0.50 0-0.5 K/uL Basophils # (Auto) 0.02 0-0.2 K/uL RDW Standard Deviation 42.6 36.4-46.3 fL RDW Coefficient of Variation 12.8 11.5-14.5 % Immature Granulocyte % (Auto) 0.5 % Immature Granulocyte # (Auto) 0.04 0.00-0.02 K/uL Prothrombin Time 11.3 9.0-12.0 SECONDS Prothromb Time International Ratio 1.1 0.9-1.1 Activated Partial Thromboplast Time 26.5 21.0-31.0 SECONDS Partial Thromboplastin Ratio 1.0 Sodium Level 141 136-145 mmol/L Potassium Level 3.9 3.5-5.1 mmol/L Chloride Level 104 98-107 mmol/L Carbon Dioxide Level 29 21-32 mmol/L Anion Gap 8.0 3-11 mmol/L Blood Urea Nitrogen 17 7-18 mg/dl Creatinine 0.98 0.60-1.20 mg/dl Est Creatinine Clear Calc Drug Dose 63.9 ml/min Estimated GFR () 67.3 Estimated GFR (Non- 58.0 BUN/Creatinine Ratio 17.0 10-20 Random Glucose 221 70-99 mg/dl Calcium Level 10.6 8.5-10.1 mg/dl Total Bilirubin 0.4 0.2-1 mg/dl Direct Bilirubin 0.1 0-0.2 mg/dl Aspartate Amino Transf (AST/SGOT) 16 15-37 U/L Alanine Aminotransferase (ALT/SGPT) 27 12-78 U/L Alkaline Phosphatase 97 45-117 U/L Total Creatine Kinase 33 26-192 U/L Creatine Kinase MB 0.5 0.5-3.6 ng/ml Creatine Kinase MB Ratio 1.5 0-3.0 Troponin I < 0.015 0-0.045 ng/ml Total Protein 7.1 6.4-8.2 gm/dl Albumin 3.6 3.4-5.0 gm/dl Lipase 156 73-393 U/L Urine Color YELLOW Urine Appearance CLEAR CLEAR Urine pH 7.0 4.5-7.5 Urine Specific [place] 1.014 1.000-1.030 Urine Protein 1+ NEG Urine Glucose (UA) 2+ NEG Urine Ketones NEG NEG Urine Occult Blood NEG NEG Urine Nitrite NEG NEG Urine Bilirubin NEG NEG Urine Urobilinogen NEG NEG Urine Leukocyte Esterase NEG NEG Urine WBC (Auto) 1-5 0-5 /hpf Urine RBC (Auto) 0-4 0-4 /hpf Urine Hyaline Casts (Auto) 1-5 0-5 /lpf Urine Epithelial Cells (Auto) 10-20 0-5 /lpf Urine Bacteria (Auto) NEG NEG Diagnostic Radiology CHEST ONE VIEW PORTABLE IMPRESSION: Moderate enlargement of the cardiac silhouette. Pulmonary vascular congestion without overt pulmonary edema. Electronically signed by: Tobin Gomez M.D. 06/13/2016 10:[address] HEAD WITHOUT CONTRAST (CT) FINDINGS: No intra or extra-axial mass lesions are visualized. There is no CT evidence of acute cortical infarction. There is no evidence of midline shift. There is no acute hemorrhage. No calvarial fractures are visualized. There are moderate white matter hypodensities likely on a small vessel basis. There is no evidence of pathologic ventricular dilatation. There is no evidence of acute sinusitis. There is a stable 7 mm dural based calcification within the right anterior middle cranial fossa IMPRESSION: No acute intracranial findings Electronically signed by: Ashok Villeda M.D. 06/13/2016 10:55 AM . EKG EKG performed at 11:02 reviewed and demonstrated SB at 59 / minute, occasional PAC's, LVH, no acute changes. . Impression Assessment and Plan HYPERTENSIVE URGENCY Markedly elevated BP's in ED. Noncompliance with meds may be contributing factor. Continue metoprolol. Increase AMAN inhibitor. Add amlodipine. Resume furosemide. Follow and titrate Rx. Meloxicam may be contributing factor, but patient reluctant to stop it. POSSIBLE CHF Check x-ray shows cardiomegaly and pulmonary vascular congestion. Has chronic lymphedema which patient feels has worsened. Has not been taking furosemide due to urinary incontinence. Resume furosemide. Check echo. FREQUENT FALLS Patient reports falling about once a week recently. Falls probably multifactorial. Head CT negative for intracranial hemorrhage or other acute process. "Dizziness" may be vertigo. Diabetic neuropathy, orthopedic issues may be contributing factors. PT evaluation, including Rush-Hallpike. DM TYPE 2 Apparently not well-controlled at home. Check Hgb A1C. Hold oral agents during hospital stay. Lantus / NovoLog per protocol. HYPOTHYROIDISM Check TSH. Continue levothyroxine. VTE PROPHYLAXIS No anticoagulants at this time due to hypertensive urgency. SCD's. Ambulate. RESUSCITATION STATUS Discussed with patient. She has a living will. She would like resuscitation attempted in the event of a cardiopulmonary arrest if there is a reasonable chance of a meaningful recovery, but does not want prolonged extraordinary measures if prognosis is poor. Therefore, code status = "Level 1" (full resuscitation). DISPOSITION Admit to Telemetry Unit- observation status. Expected discharge to home. Medical follow-up with KASANDRA Grady. . VTE Prophylaxis VTE Risk Assessment Done? Y/N: Yes Risk Level: Moderate Given or contraindicated: SCD's
[2016-06-13] MEDS ORDERED: HydrALAZINE HCL 20 MG/ML VIAL IV. PRN (16:00)
[2016-06-13] MEDS ORDERED: NITROGLYCERIN 0.4 MG SL PER TAB CHARGE SL PRN (16:00)
[2016-06-13] MEDS ORDERED: AMLODIPINE BESYLATE 5 MG TAB PO STA (16:29)
[2016-06-13] MEDS ORDERED: GLUCOSE 10 TABS/TUBE PO PRN (16:30)
[2016-06-13] MEDS ORDERED: GLUCOSE 40% GEL 15 GM TUBE PO PRN (16:30)
[2016-06-13] MEDS ORDERED: FUROSEMIDE 40 MG TAB PO STA (16:30)
[2016-06-13] MEDS ORDERED: DEXTROSE 50% 50 ML SYR IV PRN (16:30)
[2016-06-13] MEDS ORDERED: GLUCAGON FOR INJ 1 MG VIAL SQ PRN (16:30)
[2016-06-13 16:33] VITALS: BMI 41.6
[2016-06-13 17:30] VITALS: O2SAT 94
--- NOTE | 2016-06-13 19:41 | DIAGNOSTIC IMAGING REPORT ---
CERVICAL SPINE 5 VIEWS HISTORY: neck pain, recent fall COMPARISON: Cervical spine CT 05/28/2016. FINDINGS: The cervical spine is visualized from C1 through the superior endplate of T1. There is no fracture. No subluxation. Mild/moderate disc space narrowing and endplate osteophytes at C5-C6 and C6-C7. This remains unchanged. Mild reversal of the normal lordotic curvature of the lower cervical spine. Moderate facet degenerative changes throughout the majority cervical spine. Prevertebral soft tissues and the atlantodens interval are intact. IMPRESSION: No fracture or subluxation within the cervical spine. Degenerative changes as described above. Electronically signed by: Shay Underwood M.D. 06/13/2016 7:39 PM Dictated Date/Time: 06/13/2016 7:37 PM
[2016-06-13] MEDS ORDERED: HydrALAZINE HCL 20 MG/ML VIAL IV. ONE (19:59)
[2016-06-13] MEDS ORDERED: IV FLUIDS COMPLETED PRN (20:30)
[2016-06-13] MEDS: INSULIN ASPART 100 UNITS/ML 3 ML PEN SC SCH ×2 (21:00→21:12)
[2016-06-13] MEDS: METOPROLOL TARTRATE 25 MG TAB PO SCH (21:15)
[2016-06-13] MEDS: LISINOPRIL 20 MG TAB PO SCH (21:15)
[2016-06-13] MEDS: GABAPENTIN 300 MG CAP PO SCH (21:16)
[2016-06-13] MEDS: ROPINIROLE HCL 1 MG TAB PO SCH (21:16)
[2016-06-13] MEDS: ATORVASTATIN 40 MG TAB PO SCH (21:16)
[2016-06-13] MEDS: DOCUSATE SODIUM 100 MG CAP PO SCH (21:17)
[2016-06-13] MEDS: INSULIN GLARGINE SOLOSTAR 100 UNITS/ML 3 ML PEN SC SCH (21:27)
[2016-06-13 23:02] VITALS: BP 175/83; PULSE 83; TEMP 37; O2SAT 92
[2016-06-14] MEDS ORDERED: HydrALAZINE HCL 20 MG/ML VIAL IV. PRN
[2016-06-14] MEDS: ACETAMINOPHEN 500 MG TAB PO PRN ×2 (02:15→16:02)
[2016-06-14] MEDS ORDERED: FUROSEMIDE INJ 20 MG in SYRINGE 0 ML IV STA (03:23)
[2016-06-14 03:27] VITALS: BP 189/79; PULSE 69; TEMP 36.9; O2SAT 94
[2016-06-14] MEDS: LEVOTHYROXINE 175 MCG TAB PO SCH (05:33)
[2016-06-14] MEDS: RESTASIS~ORDER AWAITING ACTION SCH ×3 (08:00→15:59)
[2016-06-14] MEDS: GABAPENTIN 300 MG CAP PO SCH ×2 (08:05→21:36)
[2016-06-14] MEDS: DOCUSATE SODIUM 100 MG CAP PO SCH ×2 (08:05→21:35)
[2016-06-14] MEDS: MELOXICAM 7.5 MG TAB PO SCH (08:05)
[2016-06-14 08:06] VITALS: BP 154/70; PULSE 68; TEMP 36.8; O2SAT 93
[2016-06-14] MEDS: ASPIRIN 81 MG ECTAB PO SCH (08:06)
[2016-06-14] MEDS: FUROSEMIDE 80 MG TAB PO SCH (08:06)
[2016-06-14] MEDS: VENLAFAXINE HCL XR 75 MG CAPXR PO SCH (08:06)
[2016-06-14] MEDS: PANTOprazole SOD 40 MG TAB PO SCH (08:06)
[2016-06-14] MEDS: ALLOPURINOL 300 MG TAB PO SCH (08:06)
[2016-06-14] MEDS: LISINOPRIL 20 MG TAB PO SCH ×2 (08:07→21:41)
[2016-06-14] MEDS: METOPROLOL TARTRATE 25 MG TAB PO SCH ×2 (08:07→21:39)
[2016-06-14 08:12] LABS: BUN/CREATININE RATIO 20.8 (10-20); CALCIUM 10.2 mg/dl (8.5-10.1); POTASSIUM 3.5 mmol/L (3.5-5.1)
[2016-06-14] MEDS: INSULIN ASPART 100 UNITS/ML 3 ML PEN SC SCH ×4 (08:16→21:33)
[2016-06-14] MEDS: INSULIN GLARGINE SOLOSTAR 100 UNITS/ML 3 ML PEN SC SCH ×2 (08:18→21:31)
[2016-06-14 08:21] LABS: THYROID STIMULATING HORMONE 1.35 uIu/ml (0.300-4.500)
[2016-06-14 08:31] LABS: ESTIMATED AVERAGE GLUCOSE 229 mg/dl; HA1C FLAG Normal (Normal)
[2016-06-14] MEDS ORDERED: AMLODIPINE BESYLATE 5 MG TAB PO SCH (09:00)
[2016-06-14 12:10] VITALS: BP 135/72; PULSE 76; TEMP 36.6; O2SAT 96
[2016-06-14 14:08] VITALS: Ht 162.6 cm; Wt 105.5 kg
[2016-06-14 15:00] VITALS: BP 135/72; PULSE 76; TEMP 36.6; O2SAT 96
[2016-06-14 16:22] VITALS: BP 128/70; PULSE 65; TEMP 36.9; O2SAT 95
--- NOTE | 2016-06-14 17:59 | Progress Note ---
Medicine Progress Note Date & Time of Visit: Jun 14, 2016 at 17:49. Subjective Patient seen and examined. Still feels a little dizzy. Objective Last 8 Hrs Date Time Temp Pulse Resp B/P Pulse Ox O2 Delivery O2 Flow Rate FiO2 06/14/16 16:22 36.9 65 18 128/70 95 Room Air 06/14/16 16:15 Room Air 06/14/16 15:00 36.6 76 18 96 2.0 06/14/16 12:10 36.6 76 18 135/72 96 06/14/16 12:00 Room Air Physical Exam: General-awake; alert; NAD Eyes-EOMI; no scleral icterus Neck-no stridor; trachea midline Lungs-CTA bilaterally; no wheezes/crackles Heart-RRR; +murmur Abdomen-soft; NTND; nBS Extremities-1+ edema of bilateral LE; no deformity Neuro-no gross focal deficits Laboratory Results: Last 24 Hours Test 06/13/16 18:29 06/13/16 20:43 06/14/16 06:32 06/14/16 07:05 Bedside Glucose 130 mg/dl 177 mg/dl 180 mg/dl Sodium Level 137 mmol/L Potassium Level 3.5 mmol/L Chloride Level 100 mmol/L Carbon Dioxide Level 28 mmol/L Anion Gap 9.0 mmol/L Blood Urea Nitrogen 21 mg/dl Creatinine 1.00 mg/dl Est Creatinine Clear Calc Drug Dose 61.1 ml/min Estimated GFR () 65.6 Estimated GFR (Non- 56.6 BUN/Creatinine Ratio 20.8 Random Glucose 179 mg/dl Estimated Average Glucose 229 mg/dl Hemoglobin A1c 9.6 % Calcium Level 10.2 mg/dl Thyroid Stimulating Hormone (TSH) 1.350 uIu/ml Test 06/14/16 11:46 06/14/16 16:50 Bedside Glucose 214 mg/dl 127 mg/dl Assessment & Plan HYPERTENSIVE URGENCY Markedly elevated BP's in ED. Noncompliance with meds likely a contributing factor. Continue metoprolol. Increased lisinopril. Amlodipine had been started, but given dramatic improvement of blood pressure in a short period of time, will not continue. Resumed furosemide. POSSIBLE CHF Check x-ray showed cardiomegaly and pulmonary vascular congestion. Has chronic lymphedema which patient felt had worsened. Has not been taking furosemide due to urinary incontinence. Resumed furosemide. Echo pending. FREQUENT FALLS Patient reports falling about once a week recently. Falls probably multifactorial. Head CT negative for intracranial hemorrhage or other acute process. Diabetic neuropathy, orthopedic issues may be contributing factors. PT evaluation - recommending outpatient PT. DM TYPE 2 Apparently not well-controlled at home. Hgb A1C 9.6. Hold oral agents during hospital stay. Lantus / NovoLog per protocol. HYPOTHYROIDISM TSH normal. Continue levothyroxine. VTE PROPHYLAXIS No anticoagulants due to hypertensive urgency on admission. SCD's. Ambulate. RESUSCITATION STATUS She has a living will. She would like resuscitation attempted in the event of a cardiopulmonary arrest if there is a reasonable chance of a meaningful recovery, but does not want prolonged extraordinary measures if prognosis is poor. Therefore, code status = "Level 1" (full resuscitation). DISPOSITION Expected discharge to home with home health so that home nursing can check vitals and help monitor medication administration. Patient can then transition to outpatient PT. Medical follow-up with KASANDRA Grady. Current Inpatient Medications: Current Inpatient Medications Medications (Trade) Dose Ordered Sig/Di Route Start Time Stop Time Status Last Admin Dose Admin Allopurinol (Zyloprim Tab) 300 mg DAILY PO 06/14/16 09:00 07/14/16 08:59 06/14/16 08:06 300 MG Aspirin (Ecotrin Tab) 81 mg DAILY PO 06/14/16 09:00 07/14/16 08:59 06/14/16 08:06 81 MG Atorvastatin Calcium (Lipitor Tab) 80 mg HS PO 06/13/16 21:00 07/13/16 20:59 06/13/16 21:16 80 MG Furosemide (Lasix Tab) 80 mg DAILY PO 06/14/16 09:00 07/14/16 08:59 06/14/16 08:06 80 MG Gabapentin (Neurontin Cap) 300 mg BID PO 06/13/16 21:00 07/13/16 20:59 06/14/16 08:05 300 MG Levothyroxine Sodium (Synthroid Tab) 175 mcg DAILYBB PO 06/14/16 06:00 07/14/16 06:59 06/14/16 05:33 175 MCG Meloxicam (Mobic Tab) 15 mg DAILY PO 06/14/16 09:00 07/14/16 08:59 06/14/16 08:05 15 MG Metoprolol Tartrate (Lopressor Tab) 25 mg BID PO 06/13/16 21:00 07/13/16 20:59 06/14/16 08:07 25 MG Pantoprazole Sodium (Protonix Tab) 40 mg DAILY PO 06/14/16 09:00 07/14/16 08:59 06/14/16 08:06 40 MG Ropinirole HCl (Requip Tab) 1 mg HS PO 06/13/16 21:00 07/13/16 20:59 06/13/16 21:16 1 MG Venlafaxine HCl (effeXOR EXTENDED REL CAP) 75 mg DAILY PO 06/14/16 09:00 07/14/16 08:59 06/14/16 08:06 75 MG Lisinopril (Zestril Tab) 20 mg BID PO 06/13/16 21:00 07/13/16 20:59 06/14/16 08:07 20 MG Docusate Sodium (coLACE CAP) 100 mg BID PO 06/13/16 21:00 07/13/16 20:59 06/14/16 08:05 100 MG Amlodipine Besylate (Norvasc Tab) 5 mg QAM PO 06/14/16 09:00 07/14/16 08:59 06/14/16 08:05 5 MG Insulin Aspart (novoLOG ASPART) SLIDING SCALE G... ACHS SC 06/13/16 17:30 07/13/16 17:29 06/14/16 12:17 5 UNITS Insulin Glargine (Lantus Solostar Pen) 10 unit BID SC 06/13/16 21:00 07/13/16 20:59 06/14/16 08:18 10 UNIT Acetaminophen (Tylenol Tab) 1,000 mg Q8H PRN PO 06/13/16 16:00 07/13/16 15:59 06/14/16 16:02 1,000 MG Nitroglycerin (Nitrostat Tab) 0.4 mg UD PRN SL 06/13/16 16:00 07/13/16 15:59 Glucose (Glucose 40% Gel) 15-30 GRAMS 15 GRAMS... UD PRN PO 06/13/16 16:30 07/13/16 16:29 Glucose (Glucose Chew Tab) 4-8 Tablets 4 Tabl... UD PRN PO 06/13/16 16:30 07/13/16 16:29 Dextrose (Dextrose 50% 50ML Syringe) 25-50ML OF 50% DW IV FOR... UD PRN IV 06/13/16 16:30 07/13/16 16:29 Glucagon (Glucagon Inj) 1 mg UD PRN SQ 06/13/16 16:30 07/13/16 16:29 Hydralazine HCl (HydrALAZINE INJ) 10 mg Q4H PRN IV. 06/14/16 00:00 07/14/16 00:00 06/14/16 03:08 10 MG Miscellaneous (Iv Fluids Completed) 1 ea PRN PRN N/A 06/13/16 20:30 06/13/17 20:29 Miscellaneous Information (Order Awaiting Action) 1 ea QS N/A 06/14/16 00:00 07/14/16 00:00
--- NOTE | 2016-06-14 18:11 | ECHOCARDIOGRAM REPORT ---
*NOTICE TO RECEIVING [employer]Y This information is strictly Confidential and protected under [place] law. [place] law prohibits you from making any further disclosure of this information unless further disclosure is expressly permitted by the written consent of the person to whom it pertains or is authorized by law. A general authorization for the release of medical or other information is not sufficient for this purpose. Hospital accepts no responsibility if the information is made available to any other person, INCLUDING THE PATIENT. Interpretation Summary * Name: MARÍA VEGA Study Date: 06/14/2016 06:35 AM BP: 189/79 mmHg * Patient Location: C.2T\S\S242\S\1 HR: 69 * : 1945 (M/d/yyyy) Gender: Female Height: 64 in * Age: 70 yrs Ethnicity: [place] Weight: 242 lb * Ordering Physician: Georges Ridley * Referring Physician: Self, Referred * Performed By: Jose Landaverde RCS * * Reason For Study: CHF * BSA: 2.1 m2 * -- Conclusions -- * The left ventricular wall motion is normal. * There is mild concentric left ventricular hypertrophy. * Ejection Fraction = 65-70%. * Aortic valve sclerosis moderate, without significant aortic valvular stenosis. * Grade I diastolic dysfunction, (abnormal relaxation pattern). Procedure Details * A complete two-dimensional transthoracic echocardiogram was performed (2D, M-mode, Doppler and color flow Doppler). Left Ventricle * The left ventricle is normal in size. * There is mild concentric left ventricular hypertrophy. * Left ventricular systolic function is normal. * Ejection Fraction = 65-70%. * The left ventricular wall motion is normal. Right Ventricle * The right ventricle is normal size. * The right ventricular systolic function is normal as assessed by tricuspid annular plane systolic excursion (TAPSE) (normal >1.5 cm). Atria * The left atrial size is normal. * Right atrial size is normal. * There is no evidence of atrial septal defect, but resolution does not allow assessment for a patent foramen ovale. Mitral Valve * There is mild mitral annular calcification. * There is no mitral valve stenosis. * Significant mitral regurgitation is absent. Tricuspid Valve * The tricuspid valve is normal. * There is no tricuspid stenosis. * Significant tricuspid regurgitation is absent. * Doppler findings do not suggest pulmonary hypertension. Aortic Valve * The aortic valve is trileaflet. * Aortic valve sclerosis moderate, without significant aortic valvular stenosis. * Aortic stenosis is absent. * There is no significant aortic regurgitation. Pulmonic Valve * The pulmonary valve is not well seen, but the Doppler examination is normal without significant regurgitation or stenosis. Great Vessels * The aortic root and proximal ascending aorta are normal sized. Pericardium/Pleural * There is no pericardial effusion. Great Vessels * Normal inferior vena cava diameter and respiratory variation suggests normal central venous pressure. Left Ventricular Diastolic Function * Grade I diastolic dysfunction, (abnormal relaxation pattern). MMode 2D Measurements and Calculations IVSd 1.0 cm IVSs 1.5 cm LVIDd 5.0 cm LVIDs 3.1 cm LVPWd 1.0 cm LVPWs 1.4 cm IVS/LVPW 0.97 FS 37.5 % EDV(Teich) 115.9 ml ESV(Teich) 37.9 ml EF(Teich) 67.3 % EDV(cubed) 121.8 ml ESV(cubed) 29.8 ml EF(cubed) 75.5 % % IVS thick 52.3 % % LVPW thick 34.0 % LV mass(C)d 185.9 grams LV mass(C)dI 87.7 grams/m\S\2 LV mass(C)s 158.8 grams LV mass(C)sI 74.9 grams/m\S\2 CO(Teich) 5.7 l/min CI(Teich) 2.7 l/min/m\S\2 SV(Teich) 78.0 ml SI(Teich) 36.8 ml/m\S\2 CO(cubed) 6.7 l/min CI(cubed) 3.2 l/min/m\S\2 SV(cubed) 92.0 ml SI(cubed) 43.4 ml/m\S\2 Ao root diam 3.2 cm Ao root area 8.1 cm\S\2 ACS 1.8 cm LA dimension 3.7 cm LA/Ao 1.1 LVAd ap4 36.5 cm\S\2 LVLd ap4 8.6 cm EDV(MOD-sp4) 127.0 ml LVAs ap4 19.4 cm\S\2 LVLs ap4 7.1 cm ESV(MOD-sp4) 45.0 ml EF(MOD-sp4) 64.6 % LVAd ap2 34.1 cm\S\2 LVLd ap2 9.4 cm EDV(MOD-sp2) 104.0 ml LVAs ap2 18.8 cm\S\2 LVLs ap2 7.6 cm ESV(MOD-sp2) 41.0 ml EF(MOD-sp2) 60.6 % CO(MOD-sp4) 6.0 l/min CI(MOD-sp4) 2.8 l/min/m\S\2 SV(MOD-sp4) 82.0 ml SI(MOD-sp4) 38.7 ml/m\S\2 CO(MOD-sp2) 4.6 l/min CI(MOD-sp2) 2.2 l/min/m\S\2 SV(MOD-sp2) 63.0 ml SI(MOD-sp2) 29.7 ml/m\S\2 Doppler Measurements and Calculations MV E max tadeo 85.0 cm/sec MV A max tadeo 134.4 cm/sec MV E/A 0.63 MV P1/2t max tadeo 98.6 cm/sec MV P1/2t 91.6 msec MVA(P1/2t) 2.4 cm\S\2 MV dec slope 315.4 cm/sec\S\2 MV dec time 0.33 sec Ao V2 max 167.7 cm/sec Ao max PG 11.3 mmHg Ao max PG (full) 5.9 mmHg LV V1 max PG 5.4 mmHg LV V1 max 115.9 cm/sec PA V2 max 110.9 cm/sec PA max PG 4.9 mmHg TR max tadeo 241.3 cm/sec
[2016-06-14] MEDS: ATORVASTATIN 40 MG TAB PO SCH (21:34)
[2016-06-14] MEDS: ROPINIROLE HCL 1 MG TAB PO SCH (21:34)
[2016-06-15] MEDS: RESTASIS~ORDER AWAITING ACTION SCH ×2 (00:38→07:32)
[2016-06-15 01:00] VITALS: BP 129/74; PULSE 60; TEMP 36.8; O2SAT 91
[2016-06-15] MEDS: ACETAMINOPHEN 500 MG TAB PO PRN (02:02)
[2016-06-15] MEDS: LEVOTHYROXINE 175 MCG TAB PO SCH (06:19)
[2016-06-15] MEDS: GABAPENTIN 300 MG CAP PO SCH (07:35)
[2016-06-15] MEDS: LISINOPRIL 20 MG TAB PO SCH (07:35)
[2016-06-15] MEDS: PANTOprazole SOD 40 MG TAB PO SCH (07:35)
[2016-06-15] MEDS: ALLOPURINOL 300 MG TAB PO SCH (07:35)
[2016-06-15] MEDS: MELOXICAM 7.5 MG TAB PO SCH (07:35)
[2016-06-15] MEDS: ASPIRIN 81 MG ECTAB PO SCH (07:36)
[2016-06-15] MEDS: FUROSEMIDE 80 MG TAB PO SCH (07:36)
[2016-06-15] MEDS: VENLAFAXINE HCL XR 75 MG CAPXR PO SCH (07:36)
[2016-06-15] MEDS: METOPROLOL TARTRATE 25 MG TAB PO SCH (07:36)
[2016-06-15] MEDS: DOCUSATE SODIUM 100 MG CAP PO SCH (07:36)
[2016-06-15 07:49] VITALS: BP 153/72; PULSE 56; TEMP 36.5; O2SAT 94
[2016-06-15] MEDS: INSULIN GLARGINE SOLOSTAR 100 UNITS/ML 3 ML PEN SC SCH (09:07)
[2016-06-15] MEDS: INSULIN ASPART 100 UNITS/ML 3 ML PEN SC SCH (09:07)
[2016-06-15] MEDS ORDERED: BENA1TAB19 PO (10:05)
[2016-06-15] MEDS ORDERED: ALBUAER INH (10:05)
--- NOTE | 2016-06-15 10:09 | Discharge Instructions ---
Discharge Instructions Admission Reason for Admission: Hypertensive Urgency Discharge Discharge Diagnosis / Problem: Hypertensive urgency Discharge Goals Goal(s): Improve disease control Activity Recommendations Activity Limitations: resume your previous activity . Instructions / Follow-Up Instructions / Follow-Up Please follow up with Family Medicine Mable Hylton on June 19 at 10:00am. Please discuss with Mable Hylton when to transition from home nursing to outpatient physical therapy. You will be contacted by [facility] home health agency regarding setting up home nursing. Your benazepril dose was increased during this hospitalization. You can take 2 tablets of benazepril 20mg once a day until you run out. Your new prescription is for benazepril 40mg once a day. Current Hospital Diet Patient's current hospital diet: AHA Diet (Heart Healthy), Diabetes Type 2 Diet Discharge Diet Recommended Diet: AHA Diet (Heart Healthy), Diabetes Type 2 Diet Pending Studies Studies pending at discharge: no Laboratory Results Hemoglobin A1c Test 06/14/16 07:05 Range/Units Estimated Average Glucose 229 mg/dl Hemoglobin A1c 9.6 H 4.5-5.6 % Medical Emergencies . Who to Call and When: Medical Emergencies: If at any time you feel your situation is an emergency, please call 911 immediately. . Non-Emergent Contact Non-Emergency issues call your: Primary Care Provider . . "Provider Documentation" section prepared by Layla Daugherty. VTE Core Measure Inpt VTE Proph given/why not?: SCD's
[2016-06-15 10:51] VITALS: BP 153/72; PULSE 56; TEMP 36.5; O2SAT 94
--- NOTE | 2016-06-15 18:12 | Discharge Summary ---
Discharge Summary Date of Service Jun 15, 2016. Discharge Summary Admission Date: Jun 13, 2016 at 15:12 Discharge Date: Jun 15, 2016 Discharge Disposition: Home with services Principal Diagnosis: Hypertensive urgency Procedures: TTE * The left ventricular wall motion is normal. * There is mild concentric left ventricular hypertrophy. * Ejection Fraction = 65-70%. * Aortic valve sclerosis moderate, without significant aortic valvular stenosis. * Grade I diastolic dysfunction, (abnormal relaxation pattern). CT head No acute intracranial findings CT c-spine No fracture or subluxation within the cervical spine. Degenerative changes. Medication Reconciliation New Medications: Benazepril (Lotensin) 40 Mg Tab 40 MG PO DAILY for 30 Days, #30 TAB Changed Medications: Albuterol Sulfate (Proventil Hfa) 108 Mcg/Act Aer 2 PUFF INH Q6 PRN for SOB/Wheezing for 30 Days (Changed from: Unknown Dose ; DIRECTED) Continued Medications: Allopurinol (Zyloprim) 100 Mg Tab 300 MG PO DAILY, TAB Aspirin Enteric Coated (Ecotrin Or Generic) 81 Mg Tab 81 MG PO DAILY, TAB Atorvastatin (Lipitor) 40 Mg Tab 80 MG PO HS, TAB Biotin (Biotin) 1 Mg Cap Unknown Dose PO BID Colchicine (Colchicine) 0.6 Mg Tab 0.6 MG PO PRN, TAB Cyclosporine (Ophth) (Restasis) 0.05 % Emu 1 DROPS OP BID for 30 Days, #60 VIAL 3 Refills Docusate Sodium (Docusate Sodium) 100 Mg Tab 100 MG PO BID Fluticasone Propionate (Nasal) (Flonase Allergy Relief) 50 Mcg/Act Spr 50 MCG JOHN BID USE 2 SPRAYS INTO EACH NOSTRIL DAILY Furosemide (Lasix) 40 Mg Tab 80 MG PO DAILY, TAB Gabapentin (Neurontin) 300 Mg Cap 300 MG PO BID, CAP Glimepiride (Amaryl) 4 Mg Tab 1 TAB PO BID for 30 Days, #60 TAB 5 Refills Glucosamine Sulfate (Glucosamine) 750 Mg Cap DAILY Hydrocortisone Acetate (Rectal (Anusol-Hc) 25 Mg Sup 1 SUPP NH BID for 14 Days, #28 SUPP 1 Refill Levothyroxine Sodium (Synthroid) 175 Mcg Tab 175 MCG PO DAILY, TAB Meloxicam (Mobic) 7.5 Mg Tab 15 MG PO DAILY, TAB Metformin Hcl (Glucophage) 1,000 Mg Tab 1000 MG PO BID, TAB Metoprolol Tartrate (Lopressor) (Lopressor) 25 Mg Tab 1 TAB PO BID for 90 Days, #180 TAB 1 Refill Multivitamin (Multivitamin) Tab 1 TAB PO DAILY, TAB Nystatin/Triamcinolone (Nystatin/Triamcinolone 961704-8.1 Unit/gm-%) 45 Appln/ 15 Gm Oint Reeves-3 Fatty Acids (Fish Oil) 1,000 Mg Cap DAILY Pantoprazole (Protonix) 40 Mg Tab 40 MG PO DAILY, #30 TAB Ropinirole Hydrochloride (Requip) 1 Mg Tab 1 MG PO HS, TAB Senna (Senokot) 8.6 Mg Tab 1 TAB PO DIRECTED, TAB TAKE 1 TABLET BY MOUTH DAILY NEEDED FOR CONSTIPATION Venlafaxine Hcl (Effexor Extended Rel) 75 Mg Capcr 75 MG PO DAILY, CAP [Calcium/Mag/Zinc] () DAILY [Cinnamon] () BID [Flax Seed Oil] () DAILY Discontinued Medications: Benazepril Hcl (Lotensin) 20 Mg Tab 20 MG PO DAILY, TAB Diphenhydramine Hcl (Benadryl Allergy) 25 Mg Cap 1 CAP PO Q4H PRN for Itching for 30 Days, #30 CAP 1 Refill Admission Information HPI (per Admitting provider): 70 YO female followed by KASANDRA Grady in the [facility]. History of ischemic heart disease, hypertension, DM type 2, and other problems noted below. She was accompanying her today for his physical therapy sessions here. Noted to appear ill; possibly confused. Referred to ED for evaluation. BP in ED was 252/101. Patient apparently did not take her morning antihypertensive meds today. She has been experiencing generalized weakness, intermittent vertigo, frequent falls. Seen in ED on 05/28/16. BP at that time was 226/98. Last fall was about a week ago; she struck her head and neck. No associated LOC. No associated palpitations. She has had a headache which she attributes to chronic neck pain. Chronic chest pressure with exertion, relieved by rest, unchanged. Chronic dyspnea on exertion, unchanged. Chronic edema, somewhat worse. Has not been taking her furosemide due to urinary incontinence. . Physical Exam (per Admitting): General Appearance: WD/WN, no apparent distress Head: normocephalic, atraumatic Eyes: normal inspection, PERRL, EOMI, sclerae normal ENT: normal ENT inspection, hearing grossly normal, pharynx normal, + pertinent finding (edentulous wearing upper dentures) Neck: supple, no adenopathy, thyroid normal, no JVD, trachea midline Respiratory/Chest: lungs clear, no respiratory distress, no accessory muscle use Cardiovascular: regular rate, rhythm, no JVD, + systolic murmur (II/ systolic murmur at base), + gallop/S4, + pertinent finding (3+ lymphedema lower extremities) Abdomen/GI: normal bowel sounds, non tender, soft, no organomegaly, + pertinent finding (obese) Extremities/Musculoskelatal: no calf tenderness, normal capillary refill, + pedal edema, + pertinent finding (pedal pulses diminished) Neurologic/Psych: scaffolding helper II-XII nml as tested (PERRL, EOMI), no motor/sensory deficits (strength upper and lower extremities essentially 5/5), alert, oriented x 3, + disoriented (mild confusion) Skin: normal color, warm/dry, no rash Lymphatic: no adenopathy Hospital Course Patient was admitted with hypertensive urgency. She had markedly elevated blood pressures on presentation. Patient is very likely noncompliant with medications ; she does admit to forgetting to take her medications. Metoprolol and furosemide were continued. Benazepril was increased upon discharge. Amlodipine had been started, but given dramatic reduction in blood pressure in a short period of time, this was discontinued. TTE showed mild concentric hypertrophy. Patient did note recent frequent falls, which were likely multifactorial in origin. CT head and CT c-spine were negative for acute process. PT evaluation recommended outpatient PT. Patient was continued on the remainder of her home medications with the aforementioned exception. It was felt that patient would initially benefit from home health services to monitor vitals and ensure medication compliance, prior to proceeding with outpatient PT. Patient deemed stable for discharge with Family Medicine follow up. PE on discharge: General- awake; alert; NAD Eyes- EOMI; no scleral icterus Neck- no stridor; trachea midline Lungs- CTA bilaterally; no wheezes/crackles Heart- RRR; no m/r/g Abdomen- soft; NTND; nBS Back- no gross abnormalities Extremities- trace LE edema; no deformity Neuro- no gross abnormalities Skin- no appreciable rash or bruise . Total time spent on discharge = This includes examination of the patient, discharge planning, medication reconciliation, and communication with other providers. Discharge Instructions Discharge Instructions Admission Reason for Admission: Hypertensive Urgency Discharge Discharge Diagnosis / Problem: Hypertensive urgency Discharge Goals Goal(s): Improve disease control Activity Recommendations Activity Limitations: resume your previous activity . Instructions / Follow-Up Instructions / Follow-Up Please follow up with Family Medicine Mable Hylton on June 19 at 10:00am. Please discuss with Mable Hylton when to transition from home nursing to outpatient physical therapy. You will be contacted by [facility] health agency regarding setting up home nursing. Your benazepril dose was increased during this hospitalization. You can take 2 tablets of benazepril 20mg once a day until you run out. Your new prescription is for benazepril 40mg once a day. Current Hospital Diet Patient's current hospital diet: AHA Diet (Heart Healthy), Diabetes Type 2 Diet Discharge Diet Recommended Diet: AHA Diet (Heart Healthy), Diabetes Type 2 Diet Pending Studies Studies pending at discharge: no Laboratory Results Hemoglobin A1c Test 06/14/16 07:05 Range/Units Estimated Average Glucose 229 mg/dl Hemoglobin A1c 9.6 H 4.5-5.6 % Medical Emergencies . Who to Call and When: Medical Emergencies: If at any time you feel your situation is an emergency, please call 911 immediately. . Non-Emergent Contact Non-Emergency issues call your: Primary Care Provider . . "Provider Documentation" section prepared by Layla Daugherty. VTE Core Measure Inpt VTE Proph given/why not?: SCD's Additional Copies To Mable Hylton
[2016-08-28] MEDS ORDERED: novolog SQ (14:07)
[2016-08-28] MEDS ORDERED: Lantus SQ (14:07)
[2016-08-28] MEDS ORDERED: vitamin e PO (14:15)
[2016-08-28] MEDS ORDERED: ASCA500 PO (14:15)
[2016-08-28] MEDS ORDERED: ZINC1CAP PO (14:15)
[2016-08-28] MEDS ORDERED: MAGN400T6 PO (14:15)
[2016-10-09] MEDS ORDERED: ALLO300T2 PO (15:28)
[2016-10-09] MEDS ORDERED: NVLGI/PEN SQ (15:28)
[2016-10-09] MEDS ORDERED: INSDGI SC (15:28)
[2016-10-09] MEDS ORDERED: ATOR-26 PO (15:28)
[2016-10-09] MEDS ORDERED: CARV25TA2 PO (15:54)
== END 2016-06-15 14:05 | disposition home health service (06) ==
LOC: ENRESERVTM → ENRESERVDT → EDBD 09:22 → C.EDB 09:26 → C.2T 15:12 → C.MS4W 06-14 15:19
PROVIDERS: ADMIT Hospitalist; ATTEND Internal Medicine
DX: I16.0 Hypertensive urgency (principal); Z91.81 History of falling; E11.40 Type 2 diabetes mellitus with diabetic neuropathy, unspecified; E03.9 Hypothyroidism, unspecified; I35.0 Nonrheumatic aortic (valve) stenosis; I25.10 Atherosclerotic heart disease of native coronary artery without angina pectoris; E78.5 Hyperlipidemia, unspecified; M19.90 Unspecified osteoarthritis, unspecified site; M10.9 Gout, unspecified; I89.0 Lymphedema, not elsewhere classified; G25.81 Restless legs syndrome; M48.00 Spinal stenosis, site unspecified; Z90.49 Acquired absence of other specified parts of digestive tract; Z86.73 Personal history of transient ischemic attack (TIA), and cerebral infarction without residual deficits; Z87.442 Personal history of urinary calculi; Z79.4 Long term (current) use of insulin; Z96.653 Presence of artificial knee joint, bilateral; Z79.82 Long term (current) use of aspirin; Z88.0 Allergy status to penicillin; Z88.2 Allergy status to sulfonamides; Z91.14 Patient's other noncompliance with medication regimen; Z82.3 Family history of stroke; Z82.49 Family history of ischemic heart disease and other diseases of the circulatory system

== ENCOUNTER → 2016-10-10 | Day surgery (SDC) | payer OTHER ==
[2016-10-09 15:28] VITALS: Ht 162.6 cm; Wt 106.8 kg
[~2016-10-10] VITALS: Ht 162.6 cm; Wt 106.8 kg
[~2016-10-10] MED LIST changes: +500ML BSS 0.3ML EPI 1:1000PF IRRIG ONE; +ACETAMINOPHEN 325 MG TAB PO PRN; +ALBUAER INH; -ALBUAER19 INH; -ALLO100T PO; +ALLO300T2 PO; -AMLO5TAB4 PO; +AMVISC PLUS 0.8ML SYRINGE INT OCU ONE; +ASCA500 PO; +ATOR-26 PO; +ATROPINE SULFATE 0.1 MG/ML 5ML SYR IV PRN; -BENA20TA13 PO; +BIOT1CAP8 PO; -BIOTPOW17; -BNC/40 PO; +BSS FLUSH ONE; -CALCIUM/MAG/ZINC; +CARV25TA2 PO; -CINNAMON; -CLOP1TAB5 PO; -CRANPOW; +CYCL0.052 OP; +ENDOCOAT 0.85ML SYRINGE INT OCU ONE; +EpHEDrine SULFATE INJ 50 MG/ML AMP IV PRN; +EpINEphrine INJ 1MG/ML AMP 1 MG/ML AMP ONE; -FISHOIL PO; -FLAX SEED OIL; +FLUT0.15 NAE; -GLIM2TAB2 PO; +HYDR25SU20 PR; +INSDGI SC; +LACTATED RINGER'S 1000ML 500 ML IV SCH; +LIDOCAINE 4% OP SOLN DROP CHARGE ONE; +LIDOCAINE 4% OP SOLN DROP CHARGE OPR SCH; +LIDOCAINE HCL 1% MPF 2 ML VIAL ONE; -LPT/40 PO; -LRT5 PO; +MAGN400T6 PO; -MECL1TAB42 PO; +MELO7.5T5 PO; -METO-217 PO; +METO25TA56 PO; +MIDAZOLAM HCL 1 MG/ML 2ML VIAL ONE; +MIX: 4ML BSS 1ML EPI 1:1000 PF TOP ONE; +MOXIFLOXACIN OPH SOLN PER DROP CHARGE ONE; -NITR0.4D TD; +NVLGI/PEN SQ; +ONDANSETRON INJ 2 MG/ML 2 ML VIAL IV PRN; +PANT40TA PO; +POVIDONE-IODINE OP SOLN 30 ML BTL ONE; +PROPARACAINE 0.5% OP SOLN PER DROP CHARGE OPR SCH; -RSTOPS OP; +SENN-61 PO; -SIMV20TA2 PO; +TOBRAMYCIN/DEXAMETHASONE OPH OINT PER APPLN CHARGE ONE; -TRAM-10 PO; -VENL75TA4 PO; +ZINC1CAP PO
--- NOTE | 2016-10-10 08:11 | History & Physical Bridge - SC ---
H&P Re-Evaluation Bridge Note: I have examined the patient, reviewed the History & Physical and in the interval since the performance of the History & Physical I have noted the following changes of clinical significance: No changes noted. Right eye cataract surgery.
[2016-10-10] MEDS: PHENYLEPHRINE HCL 2.5% OP SOLN PER DROP CHARGE OPR SCH ×3 (08:56→09:06)
[2016-10-10] MEDS: TROPICAMIDE 1% OP SOLN PER DROP CHARGE OPR SCH ×3 (08:57→09:07)
[2016-10-10] MEDS: CYCLOPENTOLATE HCL 1% OP SOLN PER DROP CHARGE OPR SCH ×3 (08:58→09:08)
[2016-10-10] MEDS: MOXIFLOXACIN OPH SOLN PER DROP CHARGE OPR SCH ×3 (08:59→09:09)
[2016-10-10 09:54] VITALS: TEMP 36.2
--- NOTE | 2016-10-10 09:54 | [facility] Post Operative Brief Note ---
Immediate Operative Summary Operative Date Oct 10, 2016. Pre-Operative Diagnosis Right eye cataract Post-Operative Diagnosis Same as preop Procedure(s) Performed Right Cataract Phacoemulsification With Intraocular Lens Implant Surgeon Dr. Briggs Ice Guard Inspector Surgeon(s) None Estimated Blood Loss 0 mL Findings right cataract Specimens None Complication(s) None Disposition
--- NOTE | 2016-10-10 09:54 | [facility] Operative Report ---
Operative Report Date of Service Oct 10, 2016. Operative Report Phaco with monofocal IOL DATE OF OPERATION: 10/10/16 PREOPERATIVE DIAGNOSIS: Senile nuclear cataract, right eye POSTOPERATIVE DIAGNOSIS: Senile nuclear cataract, right eye PROCEDURE PERFORMED: Phacoemulsification with intraocular lens implantation, right eye SURGEON: Dr. Darrick Briggs ANESTHESIA: Topical with 1% intracameral lidocaine and monitored anesthesia care COMPLICATIONS: None DESCRIPTION OF PROCEDURE: After positively identifying the patient both verbally and by wristband in the preoperative area, the right eye was marked as the operative eye. The patient was then brought back to the operating room by the anesthesia and nursing staff where they were given a drop of Lidocaine and betadine into the operative eye. They were then sterilely prepped and draped in the standard fashion typical for ophthalmic surgery. Steri-strips were placed along the upper eyelids to keep the lashes back, and a lid speculum was placed into the operative eye. At this point, a documented time out was performed with members of the ophthalmology, nursing, and anesthesia staffs all agreeing upon the correct patient, correct location for surgery, correct procedure, and correct type and power of intraocular lens to be implanted. The microscope was then swung into position. First, a paracentesis wound was made using a sideport blade. Then, in sequence, 1% preservative-free lidocaine followed by Endocoat viscoelastic was injected into the anterior chamber. Next , the main incision was made with a keratome blade in triplanar fashion. A sharp cystotome was introduced into the eye and used to create a tear in the anterior capsule, which was directed into a continuous curvilinear capsulorrhexis using Utrata forceps. Hydrodissection was then performed with BSS on a flat-tip cannula. Next, the phacoemulsification handpiece was introduced into the eye and used to remove the nucleus in a [id number] fashion. This was done without complication and then the irrigation-aspiration handpiece was introduced into the eye and used to remove all remaining cortical and epinuclear material. Amvisc was then injected into the anterior chamber as well as into the capsular bag and using the lens injector system, an MX60 20.0 D lens, serial number [id number], and expiration date 04/2019 was injected into the capsular bag and rotated into the correct position. Next, the irrigation- aspiration handpiece was used to remove all remaining Amvisc. BSS was used to hydrate the main wound, and then BSS was injected into the paracentesis site to reach physiologic pressure and then the main wound was checked and found to be watertight. The patient was given drops of Vigamox and Tobradex ointment into the operative eye, and then the surrounding area was cleaned and dried. A clear plastic shield was placed over the eye and the patient was then sat up and taken from the operating room by the anesthesia staff having tolerated the procedure well and suffering no complications. DISPOSITION: The patient was returned to the recovery room in stable condition. I attest to the content of the Intraoperative Record and any orders documented therein. Any exceptions are noted below.
--- NOTE | 2016-10-10 09:55 | Discharge Instructions-SurgCtr ---
Discharge Instructions Date of Service Oct 10, 2016. Visit Reason for Visit: Cataract Right Eye Discharge Discharge Diagnosis / Problem: right cataract Discharge Goals Goal(s): Decrease discomfort, Improve function Activity Recommendations Activity Limitations: as noted below Anesthesia . Post Anesthesia Instructions: If you have had General Anesthesia or IV Sedation: * Do not drive today. * Resume driving when surgeon permits. * Do not make important decisions or sign legal documents today. * Call surgeon for: 1. Temperature elevations greater than 101 degrees F. 2. Uncontrollable pain. 3. Excessive bleeding. 4. Persistent nausea and vomiting. 5. Medication intolerance (nausea, vomiting or rash). * For nausea and vomiting use only clear liquids such as: tea, soda, bouillon until nausea subsides, then gradually increase diet as tolerated. * If you have any concerns or questions, call your surgeon's office. If physician is unavailable and it is an emergency, call 911 or go to the nearest emergency room. . Instructions / Follow-Up Instructions / Follow-Up ACTIVITY RECOMMENDATIONS: * Light activities. * You may walk outside, read, watch television. * You may notice redness on the white part of the eye and some blurry vision - this is normal. MEDICATIONS: Resume previous medications unless instructed otherwise by your surgeon. Start all eye drops at 12 pm today: * Eye drops (today): Prednisone - one drop in operative eye every 2 hours while awake Ofloxacin - one drop in operative eye every 2 hours while awake Bromfenac - one drop in operative eye daily SPECIAL CARE INSTRUCTIONS: * Tape plastic shield over eye to sleep at night. Call your doctor at with any concerns or problems. FOLLOW UP VISIT: Follow-up with Dr Briggs at [place] office as scheduled. Diet Recommendations Home Diet: no limitations Procedures Procedures Performed: Right Cataract Phacoemulsification With Intraocular Lens Implant Pending Studies Studies pending at discharge: no Medical Emergencies . Who to Call and When: Medical Emergencies: If at any time you feel your situation is an emergency, please call 911 immediately. . Non-Emergent Contact Non-Emergency issues call your: Surgeon . . "Provider Documentation" section prepared by Darrick Briggs. .
--- NOTE | 2016-10-10 10:11 | Anesthesia Progress Nt - [facility] ---
Anesthesia Post Op Note Date & Time Oct 10, 2016 at 10:11 Vital Signs Pain Intensity: 0 Vital Signs Past 12 Hours Date Time Temp Pulse Resp B/P (MAP) Pulse Ox O2 Delivery O2 Flow Rate FiO2 10/10/16 09:54 36.2 51 14 134/71 (92) 95 Room Air 10/10/16 08:50 36.7 54 20 130/77 (94) 97 Room Air Notes Mental Status: alert / awake / arousable, participated in evaluation Pt Amnestic to Procedure: Yes Nausea / Vomiting: adequately controlled Pain: adequately controlled Airway Patency, RR, SpO2: stable & adequate BP & HR: stable & adequate Hydration State: stable & adequate Anesthetic Complications: no major complications apparent
[2016-10-10 10:26] VITALS: BP 143/76; PULSE 58; O2SAT 95
== END | disposition home or self-care (01) ==
LOC: X.SURG 08:39
PROVIDERS: ATTEND Ophthalmology
DX: H25.11 Age-related nuclear cataract, right eye (principal); I10 Essential (primary) hypertension; E10.9 Type 1 diabetes mellitus without complications; E78.00 Pure hypercholesterolemia, unspecified; K21.9 Gastro-esophageal reflux disease without esophagitis; E07.9 Disorder of thyroid, unspecified; F32.9 Major depressive disorder, single episode, unspecified; Z86.73 Personal history of transient ischemic attack (TIA), and cerebral infarction without residual deficits; Z79.02 Long term (current) use of antithrombotics/antiplatelets; Z79.4 Long term (current) use of insulin; Z79.899 Other long term (current) drug therapy

== ENCOUNTER → 2016-10-24 | Day surgery (SDC) | payer OTHER ==
[2016-10-19 11:32] VITALS: Ht 162.6 cm; Wt 106.8 kg
[~2016-10-24] VITALS: Ht 162.6 cm; Wt 106.8 kg
[~2016-10-24] MED LIST changes: +ACETAMINOPHEN 325 MG TAB ONE; +LIDOCAINE 4% OP SOLN DROP CHARGE OPL SCH; -LIDOCAINE 4% OP SOLN DROP CHARGE OPR SCH; +NURSING VERBAL MED ORDER ONE; -ONDANSETRON INJ 2 MG/ML 2 ML VIAL IV PRN; +PROPARACAINE 0.5% OP SOLN PER DROP CHARGE OPL ONE; +PROPARACAINE 0.5% OP SOLN PER DROP CHARGE OPL SCH; -PROPARACAINE 0.5% OP SOLN PER DROP CHARGE OPR SCH
--- NOTE | 2016-10-24 10:14 | History & Physical Bridge - SC ---
H&P Re-Evaluation Bridge Note: I have examined the patient, reviewed the History & Physical and in the interval since the performance of the History & Physical I have noted the following changes of clinical significance: No changes noted
[2016-10-24] MEDS: PHENYLEPHRINE HCL 2.5% OP SOLN PER DROP CHARGE OPL SCH ×3 (10:25→10:35)
[2016-10-24] MEDS: TROPICAMIDE 1% OP SOLN PER DROP CHARGE OPL SCH ×3 (10:26→10:36)
[2016-10-24] MEDS: CYCLOPENTOLATE HCL 1% OP SOLN PER DROP CHARGE OPL SCH ×3 (10:27→10:37)
[2016-10-24] MEDS: MOXIFLOXACIN OPH SOLN PER DROP CHARGE OPL SCH ×3 (10:28→10:38)
--- NOTE | 2016-10-24 11:21 | [facility] Post Operative Brief Note ---
Immediate Operative Summary Operative Date Oct 24, 2016. Pre-Operative Diagnosis Left Eye Cataract Post-Operative Diagnosis Same Procedure(s) Performed Left Cataract Phacoemulsification With Intraocular Lens Implant Surgeon Dr Briggs Salsa Dance Instructor Surgeon(s) None Estimated Blood Loss 0ml Findings left cataract Specimens None Complication(s) None Disposition
--- NOTE | 2016-10-24 11:22 | [facility] Operative Report ---
Operative Report Date of Service Oct 24, 2016. Operative Report DATE OF OPERATION: 10/24/16 PREOPERATIVE DIAGNOSIS: Senile nuclear cataract, left eye POSTOPERATIVE DIAGNOSIS: Senile nuclear cataract, left eye PROCEDURE PERFORMED: Phacoemulsification with intraocular lens implantation, left eye SURGEON: Dr. Darrick Briggs ANESTHESIA: Topical with 1% intracameral lidocaine and monitored anesthesia care COMPLICATIONS: None DESCRIPTION OF PROCEDURE: After positively identifying the patient both verbally and by wristband in the preoperative area, the left eye was marked as the operative eye. The patient was then brought back to the operating room by the anesthesia and nursing staff where they were given a drop of Lidocaine and betadine into the operative eye. They were then sterilely prepped and draped in the standard fashion typical for ophthalmic surgery. Steri-strips were placed along the upper eyelids to keep the lashes back, and a lid speculum was placed into the operative eye. At this point, a documented time out was performed with members of the ophthalmology, nursing, and anesthesia staffs all agreeing upon the correct patient, correct location for surgery, correct procedure, and correct type and power of intraocular lens to be implanted. The microscope was then swung into position. First, a paracentesis wound was made using a sideport blade. Then, in sequence, 1% preservative-free lidocaine followed by Endocoat viscoelastic was injected into the anterior chamber. Next , the main incision was made with a keratome blade in triplanar fashion. A sharp cystotome was introduced into the eye and used to create a tear in the anterior capsule, which was directed into a continuous curvilinear capsulorrhexis using Utrata forceps. Hydrodissection was then performed with BSS on a flat-tip cannula. Next, the phacoemulsification handpiece was introduced into the eye and used to remove the nucleus in a [id number] fashion. This was done without complication and then the irrigation-aspiration handpiece was introduced into the eye and used to remove all remaining cortical and epinuclear material. Amvisc was then injected into the anterior chamber as well as into the capsular bag and using the lens injector system, an MX60 20.5 D lens, serial number [id number], and expiration date 05/2019 was injected into the capsular bag and rotated into the correct position. Next, the irrigation- aspiration handpiece was used to remove all remaining Amvisc. BSS was used to hydrate the main wound, and then BSS was injected into the paracentesis site to reach physiologic pressure and then the main wound was checked and found to be watertight. The patient was given drops of Vigamox and Tobradex ointment into the operative eye, and then the surrounding area was cleaned and dried. A clear plastic shield was placed over the eye and the patient was then sat up and taken from the operating room by the anesthesia staff having tolerated the procedure well and suffering no complications. DISPOSITION: The patient was returned to the recovery room in stable condition. I attest to the content of the Intraoperative Record and any orders documented therein. Any exceptions are noted below.
--- NOTE | 2016-10-24 11:23 | Discharge Instructions-SurgCtr ---
Discharge Instructions Date of Service Oct 24, 2016. Visit Reason for Visit: Cataract Left Eye Discharge Discharge Diagnosis / Problem: left cataract Discharge Goals Goal(s): Decrease discomfort, Improve function Activity Recommendations Activity Limitations: as noted below Anesthesia . Post Anesthesia Instructions: If you have had General Anesthesia or IV Sedation: * Do not drive today. * Resume driving when surgeon permits. * Do not make important decisions or sign legal documents today. * Call surgeon for: 1. Temperature elevations greater than 101 degrees F. 2. Uncontrollable pain. 3. Excessive bleeding. 4. Persistent nausea and vomiting. 5. Medication intolerance (nausea, vomiting or rash). * For nausea and vomiting use only clear liquids such as: tea, soda, bouillon until nausea subsides, then gradually increase diet as tolerated. * If you have any concerns or questions, call your surgeon's office. If physician is unavailable and it is an emergency, call 911 or go to the nearest emergency room. . Instructions / Follow-Up Instructions / Follow-Up ACTIVITY RECOMMENDATIONS: * Light activities. * You may walk outside, read, watch television. * You may notice redness on the white part of the eye and some blurry vision - this is normal. MEDICATIONS: Resume previous medications unless instructed otherwise by your surgeon. Start all eye drops at 1:30 pm today: * Eye drops (today): Prednisone - one drop in operative eye every 2 hours while awake Ofloxacin - one drop in operative eye every 2 hours while awake Bromfenac - one drop in operative eye daily SPECIAL CARE INSTRUCTIONS: * Tape plastic shield over eye to sleep at night. Call your doctor at with any concerns or problems. FOLLOW UP VISIT: Follow-up with Dr Briggs at [facility] as scheduled. Diet Recommendations Home Diet: no limitations Procedures Procedures Performed: Left Cataract Phacoemulsification With Intraocular Lens Implant Pending Studies Studies pending at discharge: no Medical Emergencies . Who to Call and When: Medical Emergencies: If at any time you feel your situation is an emergency, please call 911 immediately. . Non-Emergent Contact Non-Emergency issues call your: Surgeon . . "Provider Documentation" section prepared by Darrick Briggs. .
[2016-10-24 11:25] VITALS: BP 146/69; PULSE 59; O2SAT 98
--- NOTE | 2016-10-24 11:35 | Anesthesia Progress Nt - [facility] ---
Anesthesia Post Op Note Date & Time Oct 24, 2016 at 11:35 Vital Signs Pain Intensity: 0 Vital Signs Past 12 Hours Date Time Temp Pulse Resp B/P (MAP) Pulse Ox O2 Delivery O2 Flow Rate FiO2 10/24/16 11:24 36.6 63 16 158/76 (103) 95 Room Air 10/24/16 10:20 36.8 60 16 181/90 (120) 96 Room Air Notes Mental Status: alert / awake / arousable, participated in evaluation Pt Amnestic to Procedure: Yes Nausea / Vomiting: adequately controlled Pain: adequately controlled Airway Patency, RR, SpO2: stable & adequate BP & HR: stable & adequate Hydration State: stable & adequate Anesthetic Complications: no major complications apparent
== END | disposition home or self-care (01) ==
LOC: X.SURG 09:47
PROVIDERS: ATTEND Ophthalmology
DX: H25.12 Age-related nuclear cataract, left eye (principal); E11.9 Type 2 diabetes mellitus without complications; I10 Essential (primary) hypertension; E78.00 Pure hypercholesterolemia, unspecified; E03.9 Hypothyroidism, unspecified; K21.9 Gastro-esophageal reflux disease without esophagitis; Z86.73 Personal history of transient ischemic attack (TIA), and cerebral infarction without residual deficits; Z79.4 Long term (current) use of insulin; Z79.82 Long term (current) use of aspirin; Z79.899 Other long term (current) drug therapy

== ENCOUNTER → 2016-12-31 | Outpatient (CLI) | payer OTHER ==
[~2016-12-31] MED LIST changes: -500ML BSS 0.3ML EPI 1:1000PF IRRIG ONE; -ACETAMINOPHEN 325 MG TAB ONE; -ACETAMINOPHEN 325 MG TAB PO PRN; -AMVISC PLUS 0.8ML SYRINGE INT OCU ONE; -ATROPINE SULFATE 0.1 MG/ML 5ML SYR IV PRN; -BSS FLUSH ONE; -ENDOCOAT 0.85ML SYRINGE INT OCU ONE; -EpHEDrine SULFATE INJ 50 MG/ML AMP IV PRN; -EpINEphrine INJ 1MG/ML AMP 1 MG/ML AMP ONE; -LACTATED RINGER'S 1000ML 500 ML IV SCH; -LIDOCAINE 4% OP SOLN DROP CHARGE ONE; -LIDOCAINE 4% OP SOLN DROP CHARGE OPL SCH; -LIDOCAINE HCL 1% MPF 2 ML VIAL ONE; -MIDAZOLAM HCL 1 MG/ML 2ML VIAL ONE; -MIX: 4ML BSS 1ML EPI 1:1000 PF TOP ONE; -MOXIFLOXACIN OPH SOLN PER DROP CHARGE ONE; -NURSING VERBAL MED ORDER ONE; -POVIDONE-IODINE OP SOLN 30 ML BTL ONE; -PROPARACAINE 0.5% OP SOLN PER DROP CHARGE OPL ONE; -PROPARACAINE 0.5% OP SOLN PER DROP CHARGE OPL SCH; -TOBRAMYCIN/DEXAMETHASONE OPH OINT PER APPLN CHARGE ONE
[2016-12-31 16:56] LABS: HEMATOCRIT 41.9 % (37-47); MEAN CELL VOLUME 95.4 fL (80-100); MEAN CORPUSCULAR HEMOGLOBIN 30.5 pg (25-34); MEAN PLATELET VOLUME 11.6 fL (7.4-10.4); PLATELET COUNT 196 K/uL (130-400); RED BLOOD COUNT 4.39 M/uL (4.2-5.4); WHITE BLOOD COUNT 6.82 K/uL (4.8-10.8)
[2016-12-31 17:03] LABS: PROTHROMBIN TIME (PATIENT) 10.7 SECONDS (9.0-12.0)
== END | disposition home or self-care (01) ==
LOC: C.LABBC 13:37
PROVIDERS: ATTEND Anesthesiology
DX: T14.8 Other injury of unspecified body region (principal); X58.XXXA Exposure to other specified factors, initial encounter